=== PATIENT | female | born 1935 | race Caucasian/White ===

== ENCOUNTER 2016-10-12 11:20 | Emergency (ER) | payer MEDICARE, OTHER ==
[2016-10-12 12:05] VITALS: BP 157/71
--- NOTE | 2016-10-12 12:08 | EDM.PDOC ---
[id number] Time Seen by Provider: 10/12/16 11:45 Source: Reports: Patient, EMS, Family History Limitations: Reports: No limitations - History of Present Illness INITIAL COMMENTS - FREE TEXT/NARRATIVE: 81-year-old female brought in by EMS after a near syncopal episode at home. She was recently started on a new blood pressure medication, there have been a variety of medications tried to control her blood pressure. She had no palpitations but felt lightheaded, then became pale and diaphoretic and felt she was going to faint. By the time EMS arrived she was fine. No pain, no shortness of breath, no significant nausea or vomiting. Severity: mild Associated symptoms: Reports: diaphoresis, other (pallor which has resolved) - Related Data Allergies/ADRs: Allergies Allergy/AdvReac Type Severity Reaction Status Date / Time contrast dye Allergy Edema Uncoded 09/01/15 20:56 Home Meds: Home Meds Albuterol Sulfate [Proair Hfa] 2 puff INH QID PRN 09/01/15 [History] Budesonide/Formoterol [Symbicort 80-4.5 MCG] 2 puff INH BID 09/01/15 [History] Citalopram Hydrobromide [Citalopram HBr] 20 mg PO QAM 09/01/15 [History] Dicyclomine [Bentyl] 1 cap PO BIDAC PRN 09/01/15 [History] Furosemide [Lasix] 1 tab PO DAILY PRN 09/01/15 [History] Lisinopril [Lisinopril] 1 tab PO BID 09/01/15 [History] Chlorthalidone [Chlorthalidone] 10/12/16 [History] Past Medical History HEENT History: Reports: Cataract Cardiovascular History: Reports: Hypertension Respiratory History: Reports: Asthma Gastrointestinal History: Reports: Other (see below) Other Gastrointestinal History: abdominal pain after hysterectomy with constipation 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, Psychiatric History: Reports: Anxiety, Depression - Past Surgical History HEENT Surgical History: Reports: Cataract surgery, Tonsillectomy Cardiovascular Surgical History: Reports: None GI Surgical History: Reports: Colonoscopy Female Surgical History: Reports: Hysterectomy Social & Family History - Tobacco Use Smoking Status *Q: Never Smoker Years of Tobacco use: 25 Packs/Tins Daily: 1 Second Hand Smoke Exposure: Yes - Alcohol Use Days Per Week of Alcohol Use: 7 Number of Drinks Per Day: 1 Total Drinks Per Week: 7 - Recreational Drug Use Recreational Drug Use: No - Living Situation & Occupation Living situation: Reports: with significant other Occupation: employed (This is a 80-year-old female, 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 Denies: fever, chills HEENT: Reports: No symptoms Respiratory: Denies: Shortness of Breath Cardiovascular: Denies: Chest pain, Palpitations Endocrine: Denies: fatigue GI/Abdominal: Denies: Abdominal pain, Nausea : Reports: no symptoms Skin: Reports: pallor, diaphoresis Neurological: Reports: Dizziness Psychiatric: Reports: No symptoms ED EXAM, NEURO - Physical Exam Exam: See Below Exam Limited By: No limitations General Appearance: alert, no apparent distress Respiratory/Chest: no respiratory distress, lungs clear Cardiovascular: regular rate, rhythm. No: extra beats GI/Abdominal: soft, non tender Neurological: alert, normal mood/affect, no motor/sensory deficits Extremities: No: pedal edema Psychiatric: normal affect, normal mood Skin Exam: Warm, Dry Course - Vital Signs Last Recorded V/S: Last Vital Signs Temp 97.0 F 10/12/16 12:03 Pulse 55 L 10/12/16 12:03 Resp 14 10/12/16 12:03 BP 157/71 H 10/12/16 12:03 Pulse Ox 97 10/12/16 12:03 - Re-Assessments/Exams Free Text/Narrative Re-Assessment/Exam: 10/12/16 12:07 Cardiac monitoring shows a normal sinus rhythm, vitals are stable. Patient is seeing doctors on a frequent basis and no further workup is necessary at this time. If her symptoms continue to recur she may have to again evaluate her medications. 10/12/16 12:13 Patient is comfortable being discharged and will call her primary care to discuss her medications. She'll return if worsening or concerns. Departure - Departure Time of Disposition: 13:01 Disposition: Home, Self-Care 01 Condition: good Clinical Impression: Vasovagal near syncope Instructions: Vasovagal Syncope, Adult Referrals: Negro Anne MD [Primary Care Provider] - Forms: ED Department Discharge Care Plan Goals: Consider talking to your primary doctor regarding your blood pressure medications. Return anytime if worsening or concerns.
== END 2016-10-12 12:30 | disposition home or self-care (01) ==
LOC: JP.ED 11:20
DX: R55 Syncope and collapse (principal); I10 Essential (primary) hypertension; F41.9 Anxiety disorder, unspecified; F32.9 Major depressive disorder, single episode, unspecified; Z79.899 Other long term (current) drug therapy; Z91.041 Radiographic dye allergy status; Z98.49 Cataract extraction status, unspecified eye; Z90.710 Acquired absence of both cervix and uterus; Z98.890 Other specified postprocedural states
CPT/HCPCS: 99283; 99284

== ENCOUNTER 2017-02-19 11:29 | Inpatient (IN) | payer MEDICARE, OTHER ==
[2017-02-19] MEDS ORDERED: Aspirin 81 MG Tab.Chew PO ONE (12:09)
[2017-02-19] MEDS ORDERED: Potassium Chloride 20 MEQ in Premix Bag 1 BAG IV ONE (13:01)
--- NOTE | 2017-02-19 13:17 | CR ---
Mild cardiomegaly. Sternotomy. No focal consolidation. Pulmonary vasculature within normal limits.
--- NOTE | 2017-02-19 13:26 | CT ---
CT head without contrast. Indication: Confusion. Total DOP 678. Findings: No mass effect or midline shift. No hemorrhage. Left frontal cortically based calcificatio n similar compared to 12/09/2012. Hypodensities are in the periventricular white matter can indicate chronic small vessel ischemic disease. No hemorrhage no extra-axial fluid collection. Mastoid air ce lls are clear. Calvarium is similar compared to prior. Impression: 1. No acute intracranial process by CT
[2017-02-19] MEDS ORDERED: Potassium Chloride 20 MEQ, Lidocaine 1% 2 ML in Sodium Chloride 0.9% 100 ML IV ONE (13:45)
[2017-02-19] MEDS ORDERED: Sodium Chloride 0.9% 1,000 ML IV SCH (14:30)
--- NOTE | 2017-02-19 14:53 | EDM.PDOC ---
ED HPI GENERAL MEDICAL PROBLEM - General Chief Complaint: Chest Pain Stated Complaint: SOB/PAIN IN LT SHOULDER Time Seen by Provider: 02/19/17 11:50 Source of Information: Reports: Patient, Family History Limitations: Reports: Other (pt has been confused for the past week. She seemed worse today. ) - History of Present Illness INITIAL COMMENTS - FREE TEXT/NARRATIVE: pt arrived talking about left shoulder pain and left chest pain. She had told her that she felt like when she had her heart attack. She was very vague with any history. Onset: Today Duration: Hour(s): Location: Reports: Chest, Other (pt has had increased confusion) Associated Symptoms: Reports: Chest Pain, Other ( confusion) Middle Anterior Chest Pain Score (Numeric/FACES): 0 - Related Data Allergies Allergy/AdvReac Type Severity Reaction Status Date / Time Iodinated Contrast- Oral and Allergy Edema Verified 02/19/17 13:26 IV Dye Home Meds: Home Meds Albuterol Sulfate [Proair Hfa] 2 puff INH QID PRN 09/01/15 [History] Budesonide/Formoterol [Symbicort 80-4.5 MCG] 2 puff INH BID 09/01/15 [History] Citalopram Hydrobromide [Citalopram HBr] 20 mg PO QAM 09/01/15 [History] Dicyclomine [Bentyl] 1 cap PO BIDAC PRN 09/01/15 [History] Furosemide [Lasix] 1 tab PO DAILY PRN 09/01/15 [History] Lisinopril [Lisinopril] 1 tab PO BID 09/01/15 [History] Chlorthalidone [Chlorthalidone] 10/12/16 [History] Budesonide/Formoterol Fumarate [Symbicort 80-4.5 Mcg Inhaler] 2 puff INH BID 08/07 [History] Past Medical History HEENT History: Reports: Cataract Cardiovascular History: Reports: Hypertension Respiratory History: Reports: Asthma Gastrointestinal History: Reports: Other (See Below) Other Gastrointestinal History: abdominal pain after hysterectomy with constipation 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, Psychiatric History: Reports: Anxiety, Depression - Past Surgical History HEENT Surgical History: Reports: Cataract Surgery, Tonsillectomy Cardiovascular Surgical History: Reports: Coronary Artery Bypass Other Cardiovascular Surgeries/Procedures: 1 1/2 years ago GI Surgical History: Reports: Colonoscopy Female Surgical History: Reports: Hysterectomy Social & Family History - Tobacco Use Smoking Status *Q: Former Smoker Years of Tobacco use: 35 Packs/Tins Daily: 0.5 Used Tobacco, but Quit: No Second Hand Smoke Exposure: No - Caffeine Use Caffeine Use: Reports: Coffee - Alcohol Use Days Per Week of Alcohol Use: 7 Number of Drinks Per Day: 2 Total Drinks Per Week: 14 - Recreational Drug Use Recreational Drug Use: No - Living Situation & Occupation Living situation: Reports: with Significant Other Occupation: Employed ED ROS GENERAL - Review of Systems Review Of Systems: See Below Constitutional: Reports: No Symptoms HEENT: Reports: No Symptoms Respiratory: Reports: No Symptoms Cardiovascular: Reports: No Symptoms Endocrine: Reports: No Symptoms GI/Abdominal: Reports: No Symptoms : Reports: No Symptoms Musculoskeletal: Reports: No Symptoms Skin: Reports: No Symptoms Neurological: Reports: Confusion ED EXAM, GENERAL - Physical Exam Exam: See Below Free Text/Narrative:: pt has been progressively more confused in the last week. Today she told her that she felt like she was having a heart attack and was having shoulder and chest pain. She was unable to give any definite history regarding the heart problem. She has had a previous IN. Her grand children state that she has been confused for about 1 week. Exam Limited By: No Limitations General Appearance: Alert, Anxious, Mild Distress Ears: Normal TMs Nose: Normal Inspection Throat/Mouth: Normal Inspection Head: Atraumatic Neck: Normal Inspection Respiratory/Chest: No Respiratory Distress Cardiovascular: Regular Rate, Rhythm, Other (pt is having pain in the left shoulkder and the left chest. ) GI/Abdominal: Soft, Non-Tender Rectal (Female) Exam: Deferred Back Exam: Normal Inspection Extremities: Normal Inspection Neurological: Alert, Oriented, Normal Cognition Psychiatric: Other (pt is clearly confused. ) Course - Vital Signs Last Recorded V/S: Last Vital Signs Temp 36.5 C 02/19/17 11:47 Pulse 70 02/19/17 14:12 Resp 12 02/19/17 14:12 BP 168/76 H 02/19/17 14:12 Pulse Ox 96 02/19/17 14:12 - Orders/Labs/Meds Orders: Active Orders 24 hr Category Date Time Status EKG Documentation Completion [RC] ASDIRECTED Care 02/19/17 11:48 Active Potassium Chloride 20 meq Med 02/19/17 13:45 Active Lidocaine 1% [Xylocaine 1%] 2 ml Sodium Chloride 0.9% [Normal Saline] 100 ml IV ONETIME Sodium Chloride 0.9% [Normal Saline] 1,000 ml Med 02/19/17 14:30 Active IV ASDIRECTED EKG 12 Lead [EK] Routine Ther 02/19/17 11:48 Ordered Medication Orders Potassium Chloride 20 meq/Lidocaine HCl 2 ml/ Sodium Chloride 112 mls @ 56 mls/ hr IV ONETIME ONE Stop: 02/19/17 15:44 Last Admin: 02/19/17 13:56 Dose: 56 mls/hr Sodium Chloride (Normal Saline) 1,000 mls @ 100 mls/hr IV ASDIRECTED [facility] Labs: Laboratory Tests 02/19/17 02/19/17 02/19/17 Range/Units 11:54 11:54 11:54 WBC 7.3 (4.5-11.0) K/uL RBC 4.74 (3.30-5.50) M/uL Hgb 13.9 D (12.0-15.0) g/dL Hct 39.5 (36.0-48.0) % MCV 83 (80-98) fL MCH 29 (27-31) pg MCHC 35 (32-36) % Plt Count 229 (150-400) K/uL Neut % (Auto) 63 (36-66) % Lymph % (Auto) 23 L (24-44) % [place] % (Auto) 13 H (2-6) % Eos % (Auto) 2 (2-4) % Baso % (Auto) 0 (0-1) % Sodium 130 L (140-148) mmol/L Potassium 2.6 L* (3.6-5.2) mmol/L Chloride 89 L (100-108) mmol/L Carbon Dioxide 36 H (21-32) mmol/L Anion Gap 7.6 (5.0-14.0) mmol/L BUN 20 H (7-18) mg/dL Creatinine 1.1 H (0.6-1.0) mg/dL Est Cr Clr Drug Dosing 41.83 mL/min Estimated GFR (MDRD) 48 L (>60) Glucose 113 H (74-106) mg/dL Calcium 9.1 (8.5-10.1) mg/dL Total Bilirubin 1.0 (0.2-1.0) mg/dL AST 21 (15-37) U/L ALT 21 (12-78) U/L Alkaline Phosphatase 75 (46-116) U/L Creatine Kinase 77 (26-192) U/L Troponin I < 0.017 (0.000-0.056) ng/mL Total Protein 7.5 (6.4-8.2) g/dL Albumin 3.9 (3.4-5.0) g/dL Globulin 3.6 H (2.3-3.5) g/dL Albumin/Globulin Ratio 1.1 L (1.2-2.2) Urine Color Urine Appearance Urine pH (4.5-8.0) Ur Specific [place] (1.008-1.030) Urine Protein (NEGATIVE) mg/dL Urine Glucose (UA) (NEGATIVE) mg/dL Urine Ketones (NEGATIVE) mg/dL Urine Occult Blood (NEGATIVE) Urine Nitrite (NEGATIVE) Urine Bilirubin (NEGATIVE) Urine Urobilinogen (NORMAL) mg/dL Ur Leukocyte Esterase (NEGATIVE) Urine RBC (0-5) Urine WBC (0-5) Ur Epithelial Cells Amorphous Sediment Urine Bacteria Urine Mucus 02/19/17 Range/Units 12:18 WBC (4.5-11.0) K/uL RBC (3.30-5.50) M/uL Hgb (12.0-15.0) g/dL Hct (36.0-48.0) % MCV (80-98) fL MCH (27-31) pg MCHC (32-36) % Plt Count (150-400) K/uL Neut % (Auto) (36-66) % Lymph % (Auto) (24-44) % [place] % (Auto) (2-6) % Eos % (Auto) (2-4) % Baso % (Auto) (0-1) % Sodium (140-148) mmol/L Potassium (3.6-5.2) mmol/L Chloride (100-108) mmol/L Carbon Dioxide (21-32) mmol/L Anion Gap (5.0-14.0) mmol/L BUN (7-18) mg/dL Creatinine (0.6-1.0) mg/dL Est Cr Clr Drug Dosing mL/min Estimated GFR (MDRD) (>60) Glucose (74-106) mg/dL Calcium (8.5-10.1) mg/dL Total Bilirubin (0.2-1.0) mg/dL AST (15-37) U/L ALT (12-78) U/L Alkaline Phosphatase (46-116) U/L Creatine Kinase (26-192) U/L Troponin I (0.000-0.056) ng/mL Total Protein (6.4-8.2) g/dL Albumin (3.4-5.0) g/dL Globulin (2.3-3.5) g/dL Albumin/Globulin Ratio (1.2-2.2) Urine Color Yellow Urine Appearance Clear Urine pH 8.0 (4.5-8.0) Ur Specific [place] 1.015 (1.008-1.030) Urine Protein Negative (NEGATIVE) mg/dL Urine Glucose (UA) Normal (NEGATIVE) mg/dL Urine Ketones Negative (NEGATIVE) mg/dL Urine Occult Blood Negative (NEGATIVE) Urine Nitrite Negative (NEGATIVE) Urine Bilirubin Negative (NEGATIVE) Urine Urobilinogen Normal (NORMAL) mg/dL Ur Leukocyte Esterase Negative (NEGATIVE) Urine RBC Not seen (0-5) Urine WBC Not seen (0-5) Ur Epithelial Cells Not seen Amorphous Sediment Not seen Urine Bacteria Not seen Urine Mucus Not seen Meds: Medications Generic Name Dose Route Start Last Admin Trade Name Freq PRN Reason Stop Dose Admin Potassium Chloride 20 meq/ 112 mls @ 56 mls/hr 02/19/17 13:45 02/19/17 13:56 Lidocaine HCl 2 ml/ Sodium IV 02/19/17 15:44 56 mls/hr Chloride ONETIME ONE Administration Sodium Chloride 1,000 mls @ 100 mls/hr 02/19/17 14:30 Normal Saline IV ASDIRECTED SHAHRIAR Discontinued Medications Generic Name Dose Route Start Last Admin Trade Name Freq PRN Reason Stop Dose Admin Aspirin 324 mg 02/19/17 12:09 02/19/17 12:43 Aspirin PO 02/19/17 12:10 324 mg ONETIME ONE Administration - Re-Assessments/Exams Free Text/Narrative Re-Assessment/Exam: 02/19/17 14:55 pt had a neg head scan, her lab work was good except for the k being 2.6. Her cardiac enzymes are normal. Departure - Departure Time of Disposition: 14:56 Disposition: Admitted As Inpatient 68 Reason for Transfer *Q: Primary PCI Indicated Condition: Fair Clinical Impression: Atypical chest pain, Confusion, Hypokalemia Forms: ED Department Discharge Care Plan Goals: admit to Dr Torres - My Orders Last 24 Hours: My Active Orders 02/19/17 11:48 EKG Documentation Completion [RC] ASDIRECTED EKG 12 Lead [EK] Routine 02/19/17 13:45 Potassium Chloride 20 meq Lidocaine 1% [Xylocaine 1%] 2 ml Sodium Chloride 0.9 % [Normal Saline] 100 ml IV ONETIME 02/19/17 14:30 Sodium Chloride 0.9% [Normal Saline] 1,000 ml IV ASDIRECTED - Assessment/Plan Last 24 Hours: My Active Orders 02/19/17 11:48 EKG Documentation Completion [RC] ASDIRECTED EKG 12 Lead [EK] Routine 02/19/17 13:45 Potassium Chloride 20 meq Lidocaine 1% [Xylocaine 1%] 2 ml Sodium Chloride 0.9 % [Normal Saline] 100 ml IV ONETIME 02/19/17 14:30 Sodium Chloride 0.9% [Normal Saline] 1,000 ml IV ASDIRECTED
--- NOTE | 2017-02-19 15:48 | PCM.HP ---
H&P History of Present Illness - General Date of Service: 02/19/17 Admit Problem/Dx: Admission Diagnosis/Problem Admission Diagnosis/Problem Hypokalemia Source of Information: Patient, Family, Provider History Limitations: Reports: Altered Mental Status - History of Present Illness Initial Comments - Free Text/Narative: Rebeca presents to the emergency room today with her family with a chief complaint of chest pain. History is very difficult to gather as the patient is quite vague in doesn't really recall the recent events. History is gathered from her and additional family members. They report that over the past few days she's become increasingly confused. She's been misplacing objects such as car keys. She has not been acting like herself and is very forgetful. She has also seemed kind of anxious. They have not noticed any fevers or sweats. She does not report any abdominal pain, shortness of breath or diarrhea. She does not currently have any chest pain and doesn't really recall her episode this morning. 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 Pravastatin was one of the medications. She does not recall if she's used her dicyclomine recently. She reports that she just feels off but cannot be more specific. Workup in the emergency room revealed significant hypokalemia and a mildly decreased renal function from baseline. There is no obvious source of infection but the patient is obviously confused and not safe for outpatient management. Middle Anterior Chest Pain Score (Numeric/FACES): 0 - Related Data Allergies/Adverse Reactions: Allergies Allergy/AdvReac Type Severity Reaction Status Date / Time Iodinated Contrast- Oral and Allergy Edema Verified 02/19/17 13:26 IV Dye Home Medications: Home Meds Albuterol Sulfate [Proair Hfa] 2 puff INH QID PRN 09/01/15 [History] Citalopram Hydrobromide [Citalopram HBr] 20 mg PO QAM 09/01/15 [History] Dicyclomine [Bentyl] 1 cap PO BIDAC PRN 09/01/15 [History] Furosemide [Lasix] 1 tab PO DAILY PRN 09/01/15 [History] Chlorthalidone [Chlorthalidone] 25 mg PO DAILY 10/12/16 [History] Budesonide/Formoterol Fumarate [Symbicort 80-4.5 Mcg Inhaler] 2 puff INH BID 08/07 [History] Isosorbide Mononitrate [Isosorbide Mononitrate ER] 30 mg PO DAILY 02/19/17 [ History] Metoprolol Succinate 100 mg PO DAILY 02/19/17 [History] Pravastatin Sodium [Pravachol] 40 mg PO BEDTIME 02/19/17 [History] Simvastatin [Zocor] 20 mg PO BEDTIME 02/19/17 [History] amLODIPine Besylate [Amlodipine Besylate] 5 mg PO DAILY 02/19/17 [History] hydrOXYzine Pamoate [Hydroxyzine Pamoate] 25 mg PO TID PRN 02/19/17 [History] oxyCODONE HCl [Oxycodone HCl] 5 mg PO ASDIRECTED PRN 02/19/17 [History] Past Medical History HEENT History: Reports: Cataract Cardiovascular History: Reports: Hypertension Respiratory History: Reports: Asthma Gastrointestinal History: Reports: Other (See Below) Other Gastrointestinal History: abdominal pain after hysterectomy with constipation [employer] COMM[employer]GER History: Reports: 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, Psychiatric History: Reports: Anxiety, Depression - Past Surgical History HEENT Surgical History: Reports: Cataract Surgery, Tonsillectomy Cardiovascular Surgical History: Reports: Coronary Artery Bypass Other Cardiovascular Surgeries/Procedures: 1 1/2 years ago GI Surgical History: Reports: Colonoscopy Female Surgical History: Reports: Hysterectomy Social & Family History - Family History Cardiac: Denies: CAD - Tobacco Use Smoking Status *Q: Former Smoker Years of Tobacco use: 35 Packs/Tins Daily: 0.5 Used Tobacco, but Quit: No Second Hand Smoke Exposure: No - Caffeine Use Caffeine Use: Reports: Coffee - Alcohol Use Days Per Week of Alcohol Use: 7 Number of Drinks Per Day: 2 Total Drinks Per Week: 14 - Recreational Drug Use Recreational Drug Use: No - Living Situation & Occupation Living situation: Reports: with Significant Other Occupation: Employed H&P Review of Systems - Review of Systems: Review Of Systems: See Below Free Text/Narrative: A complete 12 point review of systems was obtained. Pertinent positives and negatives are noted in the history of present illness. All other systems were reviewed and were negative except as noted. Exam - Exam Exam: See Below - Vital Signs Vital Signs: Last Vital Signs Temp 36.5 C 02/19/17 11:47 Pulse 70 02/19/17 14:12 Resp 12 02/19/17 14:12 BP 168/76 H 02/19/17 14:12 Pulse Ox 96 02/19/17 14:12 Weight: 75.6 kg - Exam Quality Assessment: No: Supplemental Oxygen General: Alert, Cooperative. No: Oriented, Mild Distress HEENT: Conjunctiva Clear, Mucosa Moist & [place], Pupils Equal. No: Scleral Icterus Neck: Supple, Trachea Midline. No: Lymphadenopathy, Thyromegaly Lungs: Clear to Auscultation, Normal Respiratory Effort Cardiovascular: Regular Rate, Regular Rhythm. No: Systolic Murmur GI/Abdominal Exam: Normal Bowel Sounds, Soft, Non-Tender, No Distention Back Exam: Normal Inspection, Full Range of Motion. No: Vertebral Tenderness Extremities: Normal Inspection, Normal Range of Motion, No Pedal Edema Peripheral Pulses: 2+: Dorsalis Pedis (L), Dorsalis Pedis (R) Skin: Warm, Dry, Intact Neuro Extensive - Mental Status: Alert, Disorientation to Place, Disorientation to Time, Memory Loss-Recent Events, Slow Response to Commands. No: Oriented x3 , Normal Cognition Neuro Extensive - Motor, Sensory, Reflexes: CN II-XII Intact. No: Dysarthria, Abnormal Motor, Tremor DTR: 0: Bicep (L), Bicep (R), Patella (L), Patella (R) Psychiatric: Alert, Anxious (mild) - Patient Data Lab Results Last 24 hrs: Laboratory Results - last 24 hr 02/19/17 02/19/17 02/19/17 Range/Units 11:54 11:54 11:54 WBC 7.3 (4.5-11.0) K/uL RBC 4.74 (3.30-5.50) M/uL Hgb 13.9 D (12.0-15.0) g/dL Hct 39.5 (36.0-48.0) % MCV 83 (80-98) fL MCH 29 (27-31) pg MCHC 35 (32-36) % Plt Count 229 (150-400) K/uL Neut % (Auto) 63 (36-66) % Lymph % (Auto) 23 L (24-44) % [place] % (Auto) 13 H (2-6) % Eos % (Auto) 2 (2-4) % Baso % (Auto) 0 (0-1) % Sodium 130 L (140-148) mmol/L Potassium 2.6 L* (3.6-5.2) mmol/L Chloride 89 L (100-108) mmol/L Carbon Dioxide 36 H (21-32) mmol/L Anion Gap 7.6 (5.0-14.0) mmol/L BUN 20 H (7-18) mg/dL Creatinine 1.1 H (0.6-1.0) mg/dL Est Cr Clr Drug Dosing 41.83 mL/min Estimated GFR (MDRD) 48 L (>60) Glucose 113 H (74-106) mg/dL Calcium 9.1 (8.5-10.1) mg/dL Total Bilirubin 1.0 (0.2-1.0) mg/dL AST 21 (15-37) U/L ALT 21 (12-78) U/L Alkaline Phosphatase 75 (46-116) U/L Creatine Kinase 77 (26-192) U/L Troponin I < 0.017 (0.000-0.056) ng/mL Total Protein 7.5 (6.4-8.2) g/dL Albumin 3.9 (3.4-5.0) g/dL Globulin 3.6 H (2.3-3.5) g/dL Albumin/Globulin Ratio 1.1 L (1.2-2.2) Urine Color Urine Appearance Urine pH (4.5-8.0) Ur Specific [place] (1.008-1.030) Urine Protein (NEGATIVE) mg/dL Urine Glucose (UA) (NEGATIVE) mg/dL Urine Ketones (NEGATIVE) mg/dL Urine Occult Blood (NEGATIVE) Urine Nitrite (NEGATIVE) Urine Bilirubin (NEGATIVE) Urine Urobilinogen (NORMAL) mg/dL Ur Leukocyte Esterase (NEGATIVE) Urine RBC (0-5) Urine WBC (0-5) Ur Epithelial Cells Amorphous Sediment Urine Bacteria Urine Mucus 02/19/17 Range/Units 12:18 WBC (4.5-11.0) K/uL RBC (3.30-5.50) M/uL Hgb (12.0-15.0) g/dL Hct (36.0-48.0) % MCV (80-98) fL MCH (27-31) pg MCHC (32-36) % Plt Count (150-400) K/uL Neut % (Auto) (36-66) % Lymph % (Auto) (24-44) % [place] % (Auto) (2-6) % Eos % (Auto) (2-4) % Baso % (Auto) (0-1) % Sodium (140-148) mmol/L Potassium (3.6-5.2) mmol/L Chloride (100-108) mmol/L Carbon Dioxide (21-32) mmol/L Anion Gap (5.0-14.0) mmol/L BUN (7-18) mg/dL Creatinine (0.6-1.0) mg/dL Est Cr Clr Drug Dosing mL/min Estimated GFR (MDRD) (>60) Glucose (74-106) mg/dL Calcium (8.5-10.1) mg/dL Total Bilirubin (0.2-1.0) mg/dL AST (15-37) U/L ALT (12-78) U/L Alkaline Phosphatase (46-116) U/L Creatine Kinase (26-192) U/L Troponin I (0.000-0.056) ng/mL Total Protein (6.4-8.2) g/dL Albumin (3.4-5.0) g/dL Globulin (2.3-3.5) g/dL Albumin/Globulin Ratio (1.2-2.2) Urine Color Yellow Urine Appearance Clear Urine pH 8.0 (4.5-8.0) Ur Specific [place] 1.015 (1.008-1.030) Urine Protein Negative (NEGATIVE) mg/dL Urine Glucose (UA) Normal (NEGATIVE) mg/dL Urine Ketones Negative (NEGATIVE) mg/dL Urine Occult Blood Negative (NEGATIVE) Urine Nitrite Negative (NEGATIVE) Urine Bilirubin Negative (NEGATIVE) Urine Urobilinogen Normal (NORMAL) mg/dL Ur Leukocyte Esterase Negative (NEGATIVE) Urine RBC Not seen (0-5) Urine WBC Not seen (0-5) Ur Epithelial Cells Not seen Amorphous Sediment Not seen Urine Bacteria Not seen Urine Mucus Not seen Result Diagrams: 02/19/17 11:54 02/19/17 11:54 Imaging Impressions Last 24 hrs: head CT - images personally reviewed - possible mild chronic small vessel ischemic disease but no acute findings such as mass or hemorrhage Chest x-ray - images personally reviewed - chest is clear with no mass, infiltrate or effusion *Q Meaningful Use (ADM) - VTE *Q VTE Criteria *Q: - VTE Risk Assess *Q Each Risk Factor Represents 1 Point: None Total Score 1 Point Risk Factors: 0 Each Risk Factor Represents 2 Points: None Total Score 2 Point Risk Factors: 0 Each Risk Factor Represents 3 Points: Age 75 Years or Greater Total Score 3 Point Risk Factors: 3 Each Risk Factor Represents 5 Points: None Total Score 5 Point Risk Factors: 0 Venous Thromboembolism Risk Factor Score *Q: 3 - Stroke *Q Stroke Criteria *Q: - AMI *Q AMI Criteria *Q: - Problem List (1) Acute confusional state SNOMED Code(s): 9805836 ICD Code: F05 - DELIRIUM DUE TO KNOWN PHYSIOLOGICAL CONDITION Status: Acute Current Visit: Yes (2) Hypokalemia SNOMED Code(s): 63062395 ICD Code: E87.6 - HYPOKALEMIA Status: Acute Current Visit: Yes (3) Essential hypertension SNOMED Code(s): 20939184 ICD Code: I10 - ESSENTIAL (PRIMARY) HYPERTENSION Status: Chronic Current Visit: Yes (4) Atypical chest pain SNOMED Code(s): 226217890 ICD Code: R07.89 - OTHER CHEST PAIN Status: Acute Current Visit: Yes Problem List Initiated/Reviewed/Updated: Yes Orders Last 24hrs: Active Orders 24 hr Category Date Time Status Patient Status Manage Transfer [TRANSFER] Routine ADT 02/19/17 15:39 Ordered EKG Documentation Completion [RC] ASDIRECTED Care 02/19/17 11:48 Active SEDIMENTATION RATE MANUAL [HEME] Stat Lab 02/19/17 11:54 Received TSH ULTRASENSITIVE [CHEM] Stat Lab 02/19/17 11:54 Received Sodium Chloride 0.9% [Normal Saline] 1,000 ml Med 02/19/17 14:30 Active IV ASDIRECTED Resuscitation Status Routine Resus Stat 02/19/17 15:40 Ordered EKG 12 Lead [EK] Routine Ther 02/19/17 11:48 Ordered Medication Orders Sodium Chloride (Normal Saline) 1,000 mls @ 100 mls/hr IV ASDIRECTED SHAHRIAR Last Admin: 02/19/17 15:23 Dose: 100 mls/hr Assessment/Plan Comment:: Assessment and plan - Acute confusional state - at this time I'm suspicious medications are contributing to the difficulty with potential culprits including the dicyclomine in the pravastatin. I cannot find any evidence for infection at this time. I do not believe that hypokalemia should cause this level of confusion. There is no evidence for alcohol withdrawal or other illicit substance use. -Hold statin and dicyclomine -Gentle IV fluids -MRI in the morning to rule out occult stroke -TSH and B-12 levels Essential hypertension - difficult to control by history and patient has been on multiple medications. Blood pressure control is acceptable but suboptimal at this time. -Review home meds in the morning and restart as indicated Hypokalemia - significant hypokalemia, probably related to diuretic and chlorthalidone use. She has received a small quantity of supplementation in the emergency room and will receive additional oral and IV supplementation this afternoon and evening. -40 mEq by mouth 1 -IV fluids with potassium -Recheck level in the morning Maintenance issues - - DVT prophylaxis - mechanical - GI prophylaxis - not indicated - Nutrition - regular diet - Lowery catheter - not indicated CODE STATUS - full code Admission justification - This patient will be admitted for inpatient services and is medically appropriate meeting medical necessity for inpatient admission as outlined in my documentation. I reasonably expect the patient will require inpatient services that span a period time over 2 midnights. I reasonably expect this patient to be discharged or transferred within 96 hours [facility]. Disposition - anticipate discharge home after the hospital stay Primary care physician - Dr Dayana Torres M.D.
[2017-02-19] MEDS ORDERED: Polyethylene Glycol 3350 Powder 17 GM Packet PO PRN (16:13)
[2017-02-19] MEDS ORDERED: Ondansetron 4 MG Tab.DIS PO PRN (16:13)
[2017-02-19] MEDS ORDERED: Acetaminophen 325 MG Tab PO PRN (16:13)
[2017-02-19] MEDS ORDERED: Potassium Chloride 20 MEQ Tab.ER PO ONE (16:30)
[2017-02-19] MEDS: NS + KCl 20mEq/L 1,000 ML IV SCH (16:54)
[2017-02-19] MEDS: Potassium Chloride 20 MEQ in Premix Bag 1 BAG IV SCH ×2 (19:52→23:53)
[2017-02-19] MEDS: LORazepam 2 MG/ML MDV IVPUSH PRN (22:08)
[2017-02-19] MEDS: Thiamine 100 MG Tab PO SCH (22:47)
[2017-02-20] MEDS: NS + KCl 20mEq/L 1,000 ML IV SCH (01:40)
[2017-02-20] MEDS: LORazepam 2 MG/ML MDV IVPUSH PRN (10:04)
--- NOTE | 2017-02-20 10:15 | PCM.PN ---
- General Info Date of Service: 02/20/17 - Review of Systems General: Denies: Fever Neurological: Reports: Confusion Systems Review Comment:: No acute events overnight the patient had some difficulty with anxiety as well as what appeared to be some paranoia. She did not want to take potassium supplementation because she heard that this medication was hard on the body. Vital signs have been relatively stable other than moderate hypertension. No complaints of headache. Muscle aches have improved. No reports of chest pain. She seems more clear and interactive today. She has not had any fevers. - Patient Data Vitals - Most Recent: Last Vital Signs Temp 37.2 C 02/20/17 08:00 Pulse 70 02/20/17 08:00 Resp 17 02/20/17 08:00 BP 140/56 L 02/20/17 08:00 Pulse Ox 96 02/20/17 08:00 Weight - Most Recent: 75.6 kg I&O - Last 24 Hours: Intake & Output 02/19/17 02/20/17 02/20/17 22:59 06:59 14:59 Intake Total 220 1846 Output Total 650 275 300 Balance -430 1571 -300 Lab Results Last 24 Hours: Laboratory Results - last 24 hr 02/19/17 02/20/17 02/20/17 Range/Units 16:13 05:50 06:20 WBC 6.7 (4.5-11.0) K/uL RBC 4.40 (3.30-5.50) M/uL Hgb 12.8 (12.0-15.0) g/dL Hct 37.3 (36.0-48.0) % MCV 85 (80-98) fL MCH 29 (27-31) pg MCHC 34 (32-36) % Plt Count 211 (150-400) K/uL Sodium 135 L (140-148) mmol/L Potassium 3.1 L (3.6-5.2) mmol/L Chloride 97 L (100-108) mmol/L Carbon Dioxide 31 (21-32) mmol/L Anion Gap 10.1 (5.0-14.0) mmol/L BUN 16 (7-18) mg/dL Creatinine 1.0 (0.6-1.0) mg/dL Est Cr Clr Drug Dosing 46.20 mL/min Estimated GFR (MDRD) 53 L (>60) Glucose 96 (74-106) mg/dL Calcium 8.4 L (8.5-10.1) mg/dL Magnesium 1.8 (1.8-2.4) mg/dL Vitamin B12 674 (193-986) pg/ml Med Orders - Current: Current Medications Acetaminophen (Tylenol) 650 mg PO Q4H PRN PRN Reason: Pain (Mild 1-3)/fever Lorazepam (Ativan) 0.5 mg IVPUSH Q4H PRN PRN Reason: Anxiety Last Admin: 02/20/17 10:04 Dose: 0.5 mg Ondansetron HCl (Zofran Odt) 4 mg PO Q6H PRN PRN Reason: Nausea able to take PO Polyethylene Glycol (Miralax) 17 gm PO DAILY PRN PRN Reason: Constipation Thiamine HCl (Vitamin B-1) 100 mg PO BEDTIME [facility] Last Admin: 02/19/17 22:47 Dose: 100 mg Discontinued Medications Aspirin (Aspirin) 324 mg PO ONETIME ONE Stop: 02/19/17 12:10 Last Admin: 02/19/17 12:43 Dose: 324 mg Potassium Chloride 20 meq/Lidocaine HCl 2 ml/ Sodium Chloride 112 mls @ 56 mls/ hr IV ONETIME ONE Stop: 02/19/17 15:44 Last Admin: 02/19/17 13:56 Dose: 56 mls/hr Sodium Chloride (Normal Saline) 1,000 mls @ 100 mls/hr IV ASDIRECTED [facility] Last Admin: 02/19/17 15:23 Dose: 100 mls/hr Potassium Chloride/Sodium Chloride (Normal Saline With 20 Meq Kcl) 1,000 mls @ 125 mls/hr IV ASDIRECTED [facility] Last Admin: 02/20/17 01:40 Dose: 125 mls/hr Potassium Chloride 20 meq/ (Premix) 100 mls @ 50 mls/hr IV Q2H [facility] Stop: 02/19/17 23:59 Last Admin: 02/19/17 23:53 Dose: 50 mls/hr Lidocaine HCl (Xylocaine-Mpf 1%) 2 ml INJECT Q2H [facility] Stop: 02/19/17 22:01 Last Admin: 02/19/17 23:55 Dose: 2 ml Potassium Chloride (Klor-Con M20) 40 meq PO ONETIME ONE Stop: 02/19/17 16:31 Last Admin: 02/19/17 19:35 Dose: Not Given - Exam Quality Assessment: No: Supplemental Oxygen General: Alert, Oriented, Cooperative, No Acute Distress Neck: Supple Lungs: Normal Respiratory Effort GI/Abdominal Exam: Soft, No Distention Extremities: No Pedal Edema Skin: Warm, Dry Neurological: No New Focal Deficit Psy/Mental Status: Alert, Normal Affect, Anxious - Problem List & Annotations (1) Acute confusional state SNOMED Code(s): 5208404 Code(s): F05 - DELIRIUM DUE TO KNOWN PHYSIOLOGICAL CONDITION Status: Acute Current Visit: Yes (2) Hypokalemia SNOMED Code(s): 67711895 Code(s): E87.6 - HYPOKALEMIA Status: Acute Current Visit: Yes (3) Essential hypertension SNOMED Code(s): 60242838 Code(s): I10 - ESSENTIAL (PRIMARY) HYPERTENSION Status: Chronic Current Visit: Yes (4) Atypical chest pain SNOMED Code(s): 859357069 Code(s): R07.89 - OTHER CHEST PAIN Status: Acute Current Visit: Yes - Problem List Review Problem List Initiated/Reviewed/Updated: Yes - My Orders Last 24 Hours: My Active Orders 02/19/17 15:40 Resuscitation Status Routine 02/19/17 16:13 Patient Status [ADT] Routine Intake and Output [RC] QSHIFT Notify Provider Vital Signs [RC] ASDIRECTED Oxygen Therapy [RC] PRN Up With Assistance [RC] ASDIRECTED VTE/DVT Education [RC] Per Unit Routine Vital Signs [RC] Q4H Acetaminophen [Tylenol] 650 mg PO Q4H PRN Ondansetron [Zofran ODT] 4 mg PO Q6H PRN Polyethylene Glycol 3350 [MiraLAX] 17 gm PO DAILY PRN Sequential Compression Device [OM.PC] Per Unit Routine 02/19/17 21:00 Thiamine [Vitamin B-1] 100 mg PO BEDTIME 02/19/17 21:11 LORazepam [Ativan] 0.5 mg IVPUSH Q4H PRN 02/19/17 Dinner Regular Diet [DIET] 02/20/17 07:00 Brain wo Cont [MR] Routine 02/20/17 10:11 LORazepam [Ativan] 0.5 mg IVPUSH ONETIME ONE 02/20/17 10:12 LORazepam [Ativan] 0.5 mg PO Q4H PRN 02/20/17 10:13 Potassium Chloride [Klor-Con M20] 40 meq PO ONETIME ONE Convert IV to Saline Lock [OM.PC] Routine 02/20/17 10:14 Discontinue Telemetry Monitoring [Cardiac Monitoring Discontinue] [RC] Click to Edit 02/21/17 05:11 BASIC METABOLIC PANEL,BMP [CHEM] AM CBC W/O DIFF,HEMOGRAM [HEME] AM - Plan Plan:: Assessment and plan - Acute confusional state - most likely this represents a toxic encephalopathy with possible contribution from statin medication and maybe from alcohol. She seems to be more clear today and seems to be even better when she has received lorazepam. MRI showed mild chronic small vessel ischemic disease no evidence for stroke mass or other abnormality. TSH mildly elevated and B-12 is normal. -Hold statin and dicyclomine -Saline lock IV -Supplement thiamine Essential hypertension - monitor blood pressure elevation overnight but seems to be better this morning after prior to admission home medications were started. -Continue chlorthalidone, losartan and carvedilol Hypokalemia - potassium level has been improving with supplementation but remains low. -40 mEq by mouth 1 -Recheck potassium this afternoon -Recheck level in the morning Maintenance issues - - DVT prophylaxis - mechanical - GI prophylaxis - not indicated - Nutrition - regular diet Disposition - anticipate discharge home after the hospital stay Primary care physician - Dr Dayana Torres M.D.
[2017-02-20] MEDS ORDERED: LORazepam 2 MG/ML MDV IVPUSH ONE (10:45)
[2017-02-20] MEDS ORDERED: Potassium Chloride 20 MEQ Tab.ER PO ONE (10:45)
[2017-02-20] MEDS: Losartan 50 MG Tab PO SCH (11:10)
[2017-02-20] MEDS: Chlorthalidone 25 MG Tab PO SCH (11:11)
[2017-02-20] MEDS: Citalopram 20 MG Tab PO SCH (11:13)
[2017-02-20] MEDS: Carvedilol 12.5 MG Tab PO SCH ×2 (11:14→17:41)
[2017-02-20] MEDS: Aspirin 81 MG Tab.EC PO SCH (11:15)
--- NOTE | 2017-02-20 11:44 | MR ---
MR brain Indication: Confusion comparison 12/24/2012 Findings: no restricted diffusion to indicate acute infarct. High T2 signal abnormality within the d eep and periventricular white matter has mildly increased compared to prior examination. Increased s ignal within the abhijit as well is again evident. Increasing fluid within the right mastoid air cells. No ventriculomegaly. No extra-axial fluid collection. No air-fluid levels within the sinuses. Hemos iderin deposition left frontal lobe indicating the prior described calcification on CT. Impression: 1. No acute infarct. 2. High T2 signal abnormality has increased surrounding the deep and periventricular white matter. F indings can indicate chronic small vessel ischemic disease. Correlate with a history for MS as well. 3. Fluid within the right mastoid air cells. Correlate for mastoiditis.
[2017-02-20] MEDS: LORazepam 0.5 MG Tab PO PRN ×2 (17:03→21:44)
[2017-02-20] MEDS: Thiamine 100 MG Tab PO SCH (21:41)
[2017-02-21] MEDS: LORazepam 0.5 MG Tab PO PRN (03:19)
[2017-02-21] MEDS: Losartan 50 MG Tab PO SCH (08:47)
[2017-02-21] MEDS: Citalopram 20 MG Tab PO SCH (08:48)
[2017-02-21] MEDS: Aspirin 81 MG Tab.EC PO SCH (08:48)
[2017-02-21] MEDS: Chlorthalidone 25 MG Tab PO SCH (08:48)
[2017-02-21] MEDS: Carvedilol 12.5 MG Tab PO SCH (08:57)
[2017-02-21 11:32] VITALS: BP 165/85
--- NOTE | 2017-02-21 12:49 | PCM.DCSUM1 ---
Discharge Summary - Hospital Course Brief History: 81-year-old female with history of difficult to control hypertension who presented with acute confusion and was admitted for further workup and management. - Discharge Data Discharge Date: 02/21/17 Discharge Disposition: Home, Self-Care 01 Condition: Good - Discharge Diagnosis/Problem(s) (1) Acute confusional state SNOMED Code(s): 0284173 ICD Code: F05 - DELIRIUM DUE TO KNOWN PHYSIOLOGICAL CONDITION Status: Acute Problem Details: 2/2 statin? (2) Hypokalemia SNOMED Code(s): 05445704 ICD Code: E87.6 - HYPOKALEMIA Status: Acute (3) Essential hypertension SNOMED Code(s): 21392014 ICD Code: I10 - ESSENTIAL (PRIMARY) HYPERTENSION Status: Chronic (4) Atypical chest pain SNOMED Code(s): 848505755 ICD Code: R07.89 - OTHER CHEST PAIN Status: Acute - Patient Summary/Data Hospital Course: Rebeca presented to the emergency room with acute on subacute confusion. Workup in the emergency room was relatively unremarkable. There was concern for a toxic encephalopathy and she was admitted to the hospital for management. Culprit medication was thought to be the statin medication which had been relatively recently restarted. There is no strong evidence for infection. Initially there was suboptimal blood pressure control and her home medication list was difficult to determine at the time of admission. Fortunately we have been able to sort out her medication list and blood pressure has been well- controlled with medications we have used during the hospital stay. Her confusion has improved significantly during the course of the hospital stay just by holding her statin medication and providing gentle IV fluids. There does appear to be some contribution from anxiety as the patient seems to become less responsive when she gets anxious. She responds very well to lorazepam. We did perform an MRI of her brain the day after admission which showed chronic small vessel ischemic disease but no acute findings. On the day of discharge she seems to be doing well and her family agrees that she has improved significantly. I have encouraged her to discontinue her statin medication indefinitely. Her blood pressure has been well controlled. We did discuss limiting her alcohol consumption to 1 ounce daily. She will be discharged home with her family and will have follow-up with primary care in 1-2 weeks to ensure that she continues to do well. She did have some difficulties with hypokalemia at the time of presentation but these have responded well to supplementation and have remained stable. - Patient Instructions Diet: Regular Diet as Tolerated Activity: As Tolerated Showering/Bathing: May Shower Notify Provider of: Fever, Increased Pain, Nausea and/or Vomiting Other/Special Instructions: 1. You were in the hospital for management of hypokalemia as well as an acute confusional state. Your potassium level has improved with supplementation. Your confusion seems to be improving significantly and I suspect this was related to a side effect of the statin medication. I would recommend that to completely discontinue taking the statin medication. 2. We will be providing a list of blood pressure medications that I recommend you take at home. This list includes chlorthalidone, losartan and carvedilol. You have a new prescription from the [facility] for spironolactone. I recommend that you use this medication as needed if your blood pressure remains elevated at greater than 150 mmHg on several consecutive checks over a couple hours. 3. I have provided a prescription for lorazepam which you should use sparingly but as needed for breakthrough severe anxiety. 4. You may resume taking your prior to admission supplements as well as inhalers. I would recommend that you find a quality B complex multivitamin that you can take once daily to help supplement your diet. 5. Continue to change the dressing on your left leg once daily as recommended by Dr. Dawson. It is okay to shower but I would recommend avoiding bathing in a tub. 6. Please seek medical attention if you develop fever greater than 101, have worsening of your confusion or you develop acute chest pain or shortness of breath. - Discharge Plan Prescriptions/Med Rec: LORazepam [Ativan] 0.5 mg PO TID PRN #30 tablet PRN Reason: Anxiety Home Medications: Home Meds Albuterol Sulfate [Proair Hfa] 2 puff INH QID PRN 09/01/15 [History] Citalopram Hydrobromide [Citalopram HBr] 20 mg PO QAM 09/01/15 [History] Dicyclomine [Bentyl] 1 cap PO BIDAC PRN 09/01/15 [History] Chlorthalidone 25 mg PO DAILY 10/12/16 [History] Budesonide/Formoterol Fumarate [Symbicort 80-4.5 Mcg Inhaler] 2 puff INH BID 08/07 [History] Aspirin [Halfprin] 81 mg PO DAILY 02/20/17 [History] Carvedilol 12.5 mg PO BIDAC 02/20/17 [History] Losartan [Cozaar] 100 mg PO DAILY 02/20/17 [History] LORazepam [Ativan] 0.5 mg PO TID PRN #30 tablet 02/21/17 [Rx] Patient Handouts: Hypokalemia Referrals: Negro Anne MD [Primary Care Provider] - (f/u in 1-2 - follow-up hospital stay for confusion thought secondary to statin) - Discharge Summary/Plan Comment DC Time >30 min.: No (25) - Patient Data Vitals - Most Recent: Last Vital Signs Temp 36.6 C 02/21/17 11:31 Pulse 61 02/21/17 11:31 Resp 16 02/21/17 11:31 BP 165/85 H 02/21/17 11:31 Pulse Ox 94 L 02/21/17 11:31 Weight - Most Recent: 75.6 kg I&O - Last 24 hours: Intake & Output 02/20/17 02/21/17 02/21/17 22:59 06:59 14:59 Intake Total 1250 900 Output Total 550 400 400 Balance 700 500 -400 Lab Results - Last 24 hrs: Laboratory Results - last 24 hr 02/20/17 02/21/17 02/21/17 Range/Units 17:00 05:15 05:15 WBC 7.2 (4.5-11.0) K/uL RBC 4.54 (3.30-5.50) M/uL Hgb 13.3 (12.0-15.0) g/dL Hct 39.2 (36.0-48.0) % MCV 86 (80-98) fL MCH 29 (27-31) pg MCHC 34 (32-36) % Plt Count 200 (150-400) K/uL Sodium 136 L (140-148) mmol/L Potassium 4.4 4.1 (3.6-5.2) mmol/L Chloride 100 (100-108) mmol/L Carbon Dioxide 31 (21-32) mmol/L Anion Gap 9.1 (5.0-14.0) mmol/L BUN 15 (7-18) mg/dL Creatinine 0.9 (0.6-1.0) mg/dL Est Cr Clr Drug Dosing 51.33 mL/min Estimated GFR (MDRD) > 60 (>60) Glucose 113 H (74-106) mg/dL Calcium 8.7 (8.5-10.1) mg/dL Med Orders - Current: Current Medications Acetaminophen (Tylenol) 650 mg PO Q4H PRN PRN Reason: Pain (Mild 1-3)/fever Aspirin (Halfprin) 81 mg PO DAILY [facility] Last Admin: 02/21/17 08:48 Dose: 81 mg Carvedilol (Coreg) 12.5 mg PO BIDMEALS [facility] Last Admin: 02/21/17 08:57 Dose: 12.5 mg Chlorthalidone (Chlorthalidone) 25 mg PO DAILY [facility] Last Admin: 02/21/17 08:48 Dose: 25 mg Citalopram Hydrobromide (Celexa) 20 mg PO QAM [facility] Last Admin: 02/21/17 08:48 Dose: 20 mg Lorazepam (Ativan) 0.5 mg IVPUSH Q4H PRN PRN Reason: Anxiety Last Admin: 02/20/17 10:04 Dose: 0.5 mg Lorazepam (Ativan) 0.5 mg PO Q4H PRN PRN Reason: Anxiety Last Admin: 02/21/17 03:19 Dose: 0.5 mg Losartan Potassium (Cozaar) 100 mg PO DAILY [facility] Last Admin: 02/21/17 08:47 Dose: 100 mg Ondansetron HCl (Zofran Odt) 4 mg PO Q6H PRN PRN Reason: Nausea able to take PO Polyethylene Glycol (Miralax) 17 gm PO DAILY PRN PRN Reason: Constipation Thiamine HCl (Vitamin B-1) 100 mg PO BEDTIME [facility] Last Admin: 02/20/17 21:41 Dose: 100 mg Discontinued Medications Aspirin (Aspirin) 324 mg PO ONETIME ONE Stop: 02/19/17 12:10 Last Admin: 02/19/17 12:43 Dose: 324 mg Potassium Chloride 20 meq/Lidocaine HCl 2 ml/ Sodium Chloride 112 mls @ 56 mls/ hr IV ONETIME ONE Stop: 02/19/17 15:44 Last Admin: 02/19/17 13:56 Dose: 56 mls/hr Sodium Chloride (Normal Saline) 1,000 mls @ 100 mls/hr IV ASDIRECTED SHAHRIAR Last Admin: 02/19/17 15:23 Dose: 100 mls/hr Potassium Chloride/Sodium Chloride (Normal Saline With 20 Meq Kcl) 1,000 mls @ 125 mls/hr IV ASDIRECTED SHAHRIAR Last Admin: 02/20/17 01:40 Dose: 125 mls/hr Potassium Chloride 20 meq/ (Premix) 100 mls @ 50 mls/hr IV Q2H SHAHRIAR Stop: 02/19/17 23:59 Last Admin: 02/19/17 23:53 Dose: 50 mls/hr Lidocaine HCl (Xylocaine-Mpf 1%) 2 ml INJECT Q2H SHAHRIAR Stop: 02/19/17 22:01 Last Admin: 02/19/17 23:55 Dose: 2 ml Lorazepam (Ativan) 0.5 mg IVPUSH ONETIME ONE Stop: 02/20/17 10:46 Last Admin: 02/20/17 13:15 Dose: Not Given Potassium Chloride (Klor-Con M20) 40 meq PO ONETIME ONE Stop: 02/19/17 16:31 Last Admin: 02/19/17 19:35 Dose: Not Given Potassium Chloride (Klor-Con M20) 40 meq PO ONETIME ONE Stop: 02/20/17 10:46 Last Admin: 02/20/17 11:24 Dose: 40 meq *Q Meaningful Use (DIS) - VTE *Q VTE Criteria *Q: - Stroke *Q Stroke Criteria *Q: - AMI *Q AMI Criteria *Q:
== END 2017-02-21 13:45 | disposition home or self-care (01) | DRG 93 ==
LOC: JP.ED 11:29 → UNDOADMIN 15:39 → JP.ICU 15:39 → JP.MS 02-20 16:30 → JP.ICU 02-20 16:30 → UNDODISIN 02-21 13:45
PROVIDERS: ADMIT Internal Medicine; ATTEND Internal Medicine
DX: G47.51 Confusional arousals (principal); G92 Toxic encephalopathy; T46.6X5A Adverse effect of antihyperlipidemic and antiarteriosclerotic drugs, initial encounter; Y92.009 Unspecified place in unspecified non-institutional (private) residence as the place of occurrence of the external cause; R07.89 Other chest pain; R07.9 Chest pain, unspecified; R06.02 Shortness of breath; I10 Essential (primary) hypertension; Z87.891 Personal history of nicotine dependence; E87.6 Hypokalemia; I25.2 Old myocardial infarction; F41.9 Anxiety disorder, unspecified; Z95.1 Presence of aortocoronary bypass graft; J45.909 Unspecified asthma, uncomplicated; Z91.041 Radiographic dye allergy status
CPT/HCPCS: 36415; 70450 ×2; 71010 ×2; 80053; 81001; 82550; 84443; 84484; 85025; 85651; 93005; 96360; 96361; 99285; A9270; J3480; J7030; J7040; 70551; 70551-26; 80048; 82607; 83735; 84132; 85027; 86618; 93010; J2060

== ENCOUNTER 2017-02-24 21:53 | Emergency (ER) | payer MEDICARE, OTHER ==
[2017-02-24 22:47] VITALS: BP 167/85
[2017-02-24] MEDS ORDERED: Lactated Ringers 1,000 ML IV ONE (23:28)
[2017-02-24] MEDS ORDERED: Sodium Chloride 0.9% 10 ML Syringe FLUSH PRN (23:28)
--- NOTE | 2017-02-24 23:28 | EDM.PDOC ---
ED HPI GENERAL MEDICAL PROBLEM - General Chief Complaint: Behavioral/Psych Stated Complaint: confused Time Seen by Provider: 02/24/17 22:32 Source of Information: Reports: Patient, Family, Old Records, RN Notes Reviewed History Limitations: Reports: Physical Impairment - History of Present Illness INITIAL COMMENTS - FREE TEXT/NARRATIVE: 81-year-old female presents emergency department today for ongoing confusion, she was recently admitted to hospital for an extensive workup discharged on February 21 3 days prior MRI at that time showed no acute process but small vessel ischemic disease. She has progressively gotten worse over the last couple weeks but family does admit over the last couple years they've noticed subtle changes which has really accumulated to her current state she has difficulty with concentration difficulty with memory will become easily agitated forgetful easily getting lost. - Related Data Allergies Allergy/AdvReac Type Severity Reaction Status Date / Time acetaminophen [From Tylenol] Allergy Vomiting Verified 02/24/17 22:28 Iodinated Contrast- Oral and Allergy Edema Verified 02/24/17 22:28 IV Dye Home Meds: Home Meds Albuterol Sulfate [Proair Hfa] 2 puff INH QID PRN 09/01/15 [History] Citalopram Hydrobromide [Citalopram HBr] 20 mg PO QAM 09/01/15 [History] Dicyclomine [Bentyl] 1 cap PO BIDAC PRN 09/01/15 [History] Chlorthalidone 25 mg PO DAILY 10/12/16 [History] Budesonide/Formoterol Fumarate [Symbicort 80-4.5 Mcg Inhaler] 2 puff INH BID 08/07 [History] Aspirin [Halfprin] 81 mg PO DAILY 02/20/17 [History] Carvedilol 12.5 mg PO BIDAC 02/20/17 [History] Losartan [Cozaar] 100 mg PO DAILY 02/20/17 [History] LORazepam [Ativan] 0.5 mg PO TID PRN #30 tablet 02/21/17 [Rx] Past Medical History HEENT History: Reports: Cataract Cardiovascular History: Reports: Hypertension Respiratory History: Reports: Asthma Gastrointestinal History: Reports: Other (See Below) Other Gastrointestinal History: abdominal pain after hysterectomy with constipation 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, Neurological History: Reports: Other (See Below) (Small vessel ischemic disease) Psychiatric History: Reports: Anxiety, Depression - Past Surgical History HEENT Surgical History: Reports: Cataract Surgery, Tonsillectomy Cardiovascular Surgical History: Reports: Coronary Artery Bypass Other Cardiovascular Surgeries/Procedures: 1 1/2 years ago GI Surgical History: Reports: Colonoscopy Female Surgical History: Reports: Hysterectomy Social & Family History - Tobacco Use Smoking Status *Q: Never Smoker Years of Tobacco use: 35 Packs/Tins Daily: 0.5 Used Tobacco, but Quit: No Second Hand Smoke Exposure: No - Caffeine Use Caffeine Use: Reports: Coffee - Alcohol Use Days Per Week of Alcohol Use: 7 Number of Drinks Per Day: 2 Total Drinks Per Week: 14 - Recreational Drug Use Recreational Drug Use: No - Living Situation & Occupation Living situation: Reports: with Significant Other Occupation: Employed ED ROS GENERAL - Review of Systems Review Of Systems: See Below Constitutional: Reports: No Symptoms Respiratory: Reports: No Symptoms Cardiovascular: Reports: No Symptoms GI/Abdominal: Reports: No Symptoms : Reports: No Symptoms Neurological: Reports: Other (Memory difficulty) ED EXAM, GENERAL - Physical Exam Exam: See Below Exam Limited By: Physical Impairment General Appearance: Alert, No Apparent Distress Respiratory/Chest: No Respiratory Distress, Lungs Clear, Normal Breath Sounds, No Accessory Muscle Use Cardiovascular: Regular Rate, Rhythm, No Murmur Course - Vital Signs Last Recorded V/S: Last Vital Signs Temp 96.8 F 02/24/17 22:43 Pulse 75 02/24/17 22:43 Resp 14 02/24/17 22:43 BP 167/85 H 02/24/17 22:43 Pulse Ox 96 02/24/17 22:43 - Orders/Labs/Meds Orders: Active Orders 24 hr Category Date Time Status Peripheral IV Care [RC] . DIRECTED Care 02/24/17 23:29 Active CBC WITH AUTO DIFF [HEME] Stat Lab 02/24/17 23:23 Ordered COMPREHENSIVE METABOLIC PN,CMP [CHEM] Stat Lab 02/24/17 23:23 Ordered Lactated Ringers [Ringers, Lactated] 1,000 ml Med 02/24/17 23:28 Active IV BOLUS Sodium Chloride 0.9% [Saline Flush] Med 02/24/17 23:28 Active 10 ml FLUSH ASDIRECTED PRN Peripheral IV Insertion Adult [OM.PC] Urgent Oth 02/24/17 23:28 Ordered Medication Orders Lactated Ringer's (Ringers, Lactated) 1,000 mls @ 500 mls/hr IV BOLUS ONE Stop: 02/25/17 01:27 Sodium Chloride (Saline Flush) 10 ml FLUSH ASDIRECTED PRN PRN Reason: Keep Vein Open Labs: Laboratory Tests 02/24/17 Range/Units 23:40 Urine Color Yellow Urine Appearance Clear Urine pH 7.0 (4.5-8.0) Ur Specific [place] 1.015 (1.008-1.030) Urine Protein Negative (NEGATIVE) mg/dL Urine Glucose (UA) Normal (NEGATIVE) mg/dL Urine Ketones Negative (NEGATIVE) mg/dL Urine Occult Blood Negative (NEGATIVE) Urine Nitrite Negative (NEGATIVE) Urine Bilirubin Negative (NEGATIVE) Urine Urobilinogen Normal (NORMAL) mg/dL Ur Leukocyte Esterase Negative (NEGATIVE) Urine RBC 0-5 (0-5) Urine WBC 0-5 (0-5) Ur Epithelial Cells Few Amorphous Sediment Not seen Urine Bacteria Few Urine Mucus Not seen Meds: Medications Generic Name Dose Route Start Last Admin Trade Name Freq PRN Reason Stop Dose Admin Lactated Ringer's 1,000 mls @ 500 mls/hr 02/24/17 23:28 Ringers, Lactated IV 02/25/17 01:27 BOLUS ONE Sodium Chloride 10 ml 02/24/17 23:28 Saline Flush FLUSH ASDIRECTED PRN Keep Vein Open Departure - Departure Time of Disposition: 00:19 Disposition: Home, Self-Care 01 Condition: Poor Clinical Impression: Dementia Qualifiers: Dementia type: unspecified type - Discharge Information Forms: ED Department Discharge Additional Instructions: Use the Robitussin-AC as needed help suppress cough, please follow-up with primary care recommend neuropsych consult, call return emergency department with worsening of symptoms - My Orders Last 24 Hours: My Active Orders 02/24/17 23:23 CBC WITH AUTO DIFF [HEME] Stat COMPREHENSIVE METABOLIC PN,CMP [CHEM] Stat 02/24/17 23:28 Lactated Ringers [Ringers, Lactated] 1,000 ml IV BOLUS Sodium Chloride 0.9% [Saline Flush] 10 ml FLUSH ASDIRECTED PRN Peripheral IV Insertion Adult [OM.PC] Urgent 02/24/17 23:29 Peripheral IV Care [RC] . DIRECTED - Assessment/Plan Last 24 Hours: My Active Orders 02/24/17 23:23 CBC WITH AUTO DIFF [HEME] Stat COMPREHENSIVE METABOLIC PN,CMP [CHEM] Stat 02/24/17 23:28 Lactated Ringers [Ringers, Lactated] 1,000 ml IV BOLUS Sodium Chloride 0.9% [Saline Flush] 10 ml FLUSH ASDIRECTED PRN Peripheral IV Insertion Adult [OM.PC] Urgent 02/24/17 23:29 Peripheral IV Care [RC] . DIRECTED Plan: Assessment Acuity = acute Site and laterality = dementia complicated in a patient with history of chronic small vessel disease Etiology = unclear etiology Manifestations = ongoing memory issues Location of injury = Home Lab values = none Plan We did offer further blood work and evaluation they declined at this time there can follow-up with primary care recommend neuropsych consult she does have an ongoing cough they would like to try some Robitussin-AC to help sleep at night Patient was in agreement with the plan all questions were answered, they were instructed to return to the emergency department or call for worsening symptoms. This note was dictated using [employer] voice recognition software please call with any questions.
== END 2017-02-25 00:29 | disposition home or self-care (01) ==
LOC: JP.ED 21:53
DX: F03.90 Unspecified dementia, unspecified severity, without behavioral disturbance, psychotic disturbance, mood disturbance, and anxiety (principal); I10 Essential (primary) hypertension; J45.909 Unspecified asthma, uncomplicated; F41.9 Anxiety disorder, unspecified; F32.9 Major depressive disorder, single episode, unspecified; Z86.69 Personal history of other diseases of the nervous system and sense organs; Z79.899 Other long term (current) drug therapy; Z88.6 Allergy status to analgesic agent; Z91.041 Radiographic dye allergy status; Z98.890 Other specified postprocedural states; Z90.710 Acquired absence of both cervix and uterus; Z79.82 Long term (current) use of aspirin; Z98.49 Cataract extraction status, unspecified eye; Z95.1 Presence of aortocoronary bypass graft
CPT/HCPCS: 81001; 99284; 99285

== ENCOUNTER 2019-04-06 11:07 | Emergency (ER) | payer MEDICARE ==
[2019-04-06] MEDS ORDERED: oxyCODONE 5 MG Tab PO ONE (11:47)
--- NOTE | 2019-04-06 11:51 | EDM.PDOC ---
ED HPI GENERAL MEDICAL PROBLEM - General Chief Complaint: Lower Extremity Injury/Pain Stated Complaint: RIGHT ANKLE, LEFT KNEE PAIN Time Seen by Provider: 04/06/19 11:45 Source of Information: Reports: Patient, Family History Limitations: Reports: No Limitations - History of Present Illness INITIAL COMMENTS - FREE TEXT/NARRATIVE: Rebeca is an 83 year old female, presents to the ED today with her and daughter with c/o right ankle pain/swelling right foot pain and swelling after she fell at home last night. unable to bear weight. Patient fell two days prior and landed and left knee. Patient thinks she had been favoring her right leg and it twisted last night but she is unsure. was trying to use a walker this morning but was unable to. Patient took Ibuprofen for pain with no relief. Any movement/weightbearing makes her symptoms worse. Duration: Day(s): (1) Right Ankle Pain Score (Numeric/FACES): 2 Left Knee Pain Score (Numeric/FACES): 2 - Related Data Allergies Allergy/AdvReac Type Severity Reaction Status Date / Time acetaminophen [From Tylenol] Allergy Vomiting Verified 02/24/17 22:28 Iodinated Contrast Media Allergy Edema Verified 02/24/17 22:28 [Iodinated Contrast- Oral and IV Dye] Home Meds: Home Meds Albuterol Sulfate [Proair Hfa] 2 puff INH QID PRN 09/01/15 [History] Citalopram Hydrobromide [Citalopram HBr] 20 mg PO QAM 09/01/15 [History] Dicyclomine [Bentyl] 1 cap PO BIDAC PRN 09/01/15 [History] Chlorthalidone 25 mg PO DAILY 10/12/16 [History] Budesonide/Formoterol Fumarate [Symbicort 80-4.5 Mcg Inhaler] 2 puff INH BID 08/07 [History] Aspirin [Halfprin] 81 mg PO DAILY 02/20/17 [History] Carvedilol 12.5 mg PO BIDAC 02/20/17 [History] Losartan [Cozaar] 100 mg PO DAILY 02/20/17 [History] LORazepam [Ativan] 0.5 mg PO TID PRN #30 tablet 02/21/17 [Rx] Past Medical History HEENT History: Reports: Cataract Cardiovascular History: Reports: Hypertension Respiratory History: Reports: Asthma Gastrointestinal History: Reports: Other (See Below) Other Gastrointestinal History: abdominal pain after hysterectomy with constipation 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, Neurological History: Reports: Other (See Below) Other Neuro History: had tx from neurologist does not remember what Psychiatric History: Reports: Anxiety, Depression - Past Surgical History Head Surgeries/Procedures: Reports: None HEENT Surgical History: Reports: Cataract Surgery, Tonsillectomy Cardiovascular Surgical History: Reports: Coronary Artery Bypass Other Cardiovascular Surgeries/Procedures: 2015 bypass Respiratory Surgical History: Reports: None GI Surgical History: Reports: Colonoscopy Female Surgical History: Reports: Hysterectomy Neurological Surgical History: Reports: None Dermatological Surgical History: Reports: None Social & Family History - Family History Family Medical History: Noncontributory - Tobacco Use Smoking Status *Q: Former Smoker Used Tobacco, but Quit: Yes Month/Year Tobacco Last Used: 1999 Second Hand Smoke Exposure: No - Caffeine Use Caffeine Use: Reports: Coffee - Recreational Drug Use Recreational Drug Use: No - Living Situation & Occupation Living situation: Reports: with Significant Other Occupation: Employed Review of Systems - Review of Systems Review Of Systems: ROS reveals no pertinent complaints other than HPI. ED EXAM, GENERAL - Physical Exam Exam: See Below Exam Limited By: No Limitations General Appearance: Alert, WD/WN, No Apparent Distress Eye Exam: Bilateral Eye: EOMI Throat/Mouth: Inflammation Neck: Normal Inspection, Supple Respiratory/Chest: No Respiratory Distress Cardiovascular: Bradycardia Peripheral Pulses: 2+: Dorsalis Pedis (L), Dorsalis Pedis (R) Extremities: Other (right foot/ankle are swollen, medial and lateral malleolar regions, ecchymosis present, pedal pulses and cap refill intact. Abrasion and small amount of burising to left knee, no deformities) Neurological: Alert, Oriented Psychiatric: Normal Affect Lymphatic: No Adenopathy Course - Vital Signs Last Recorded V/S: Last Vital Signs Temp 35.5 C 04/06/19 14:48 Pulse 56 L 04/06/19 14:48 Resp 16 04/06/19 14:48 BP 181/78 H 04/06/19 14:48 Pulse Ox 90 L 04/06/19 14:48 Rebeca is an 83 year old female, presents to the ED today with c/o right ankle/ foot pain, fell last night, now cannot bear weight on right leg. Patient also c /o left knee pain since falling two days prior. X-rays of left knee, right ankle and foot. Right ankle with mildly displaced fibula fracture and ligamentous avulsion of malleolus, splint vs. CAM boot per ortho on review of image. Concern for ability to care for herself at home. Daughter is able to help out quite a bit but does have to go to work during the day. Pain is better here with oxycodone. Ortho recommend splint, three sided short fiberglass splint applied with good CMS post application. Patient also with UTI, started on Cefdinir pending culture. We unfortunately are out of beds here and unable to keep patient, I do not feel patient can safely care for herself at home and requires PT/OT to get involved and likely a brief TCU stay. Patient and family agreeable, requesting transfer to [facility] in [place], I discussed patient case with their hospitalist, Dr. Cara newman. She has graciously accepted patient for transfer. 1440-central office operator supervisor from [facility] called, apparently they now cannot accept patient. I spoke with hospitalist at [place], Dr. Toscano, he has graciously accepted patient for transfer. Family again updated on plan of care. Patient remains in stable condition. - Orders/Labs/Meds Orders: Active Orders 24 hr Category Date Time Status CULTURE URINE [RM] Stat Lab 04/06/19 13:46 Received Labs: Laboratory Tests 04/06/19 Range/Units 13:22 Urine Color Yellow (YELLOW) Urine Appearance Cloudy A (CLEAR) Urine pH 7.5 (5.0-8.0) Ur Specific [place] 1.015 (1.008-1.030) Urine Protein Negative (NEGATIVE) mg/dL Urine Glucose (UA) Negative (NEGATIVE) mg/dL Urine Ketones Negative (NEGATIVE) mg/dL Urine Occult Blood Trace-intact H (NEGATIVE) Urine Nitrite Positive H (NEGATIVE) Urine Bilirubin Negative (NEGATIVE) Urine Urobilinogen 0.2 (0.2-1.0) EU/dL Ur Leukocyte Esterase Moderate H (NEGATIVE) Urine RBC 0-5 (0-5) Urine WBC 30-40 H (0-5) Ur Epithelial Cells Not seen Amorphous Sediment Not seen Urine Bacteria Many Urine Mucus Not seen Meds: Medications Discontinued Medications Generic Name Dose Route Start Last Admin Trade Name Freq PRN Reason Stop Dose Admin Cefdinir 300 mg 04/06/19 13:45 04/06/19 13:56 Omnicef PO 04/06/19 13:46 300 mg ONETIME ONE Administration Oxycodone HCl 5 mg 04/06/19 11:47 04/06/19 11:58 Oxycodone PO 04/06/19 11:48 5 mg ONETIME ONE Administration Departure - Departure Time of Disposition: 16:15 Disposition: DC/Tfer to Acute Hospital 02 Condition: Fair Clinical Impression: Urinary tract infection in female, Avulsion of ligament with bony fragment of medial malleolus Fibula fracture Qualifiers: Encounter type: initial encounter Fibula location: distal Fracture type: closed Fracture morphology: unspecified fracture morphology Laterality: right Qualified Code(s): S82.831A - Other fracture of upper and lower end of right fibula, initial encounter for closed fracture - Discharge Information Referrals: Negro Anne MD [Primary Care Provider] - Forms: ED Department Discharge - My Orders Last 24 Hours: My Active Orders 04/06/19 13:46 CULTURE URINE [RM] Stat - Assessment/Plan Last 24 Hours: My Active Orders 04/06/19 13:46 CULTURE URINE [RM] Stat
[2019-04-06] MEDS ORDERED: Cefdinir 300 MG Cap PO ONE (13:45)
--- NOTE | 2019-04-06 13:54 | CR ---
FOOT RIGHT 3 views CLINICAL HISTORY:Pain, fall FINDINGS:No fracture line is identified. There is some soft tissue fullness in the forefoot. The there is some bony rarefaction in the distal fourth and fifth metatarsals. There is some osteoarthritic change in the first tarsometatarsal joint. There is also degenerative changes in the interphalangeal joints. 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
--- NOTE | 2019-04-06 13:56 | CR ---
Ankle Min 3V Rt CLINICAL HISTORY: Vein, fall FINDINGS: There is an oblique slightly displaced fracture of the distal fibular diaphysis. There is widening of the medial ankle mortise. There is generalized soft tissue swelling. There is some ossific density off the tip of the medial malleolus likely related to ligamentous avulsion. Impression: Distal fibular fracture Lateral subluxation of the talus with widening of the medial ankle mortise Ligamentous avulsion off the medial malleolus
--- NOTE | 2019-04-06 13:59 | CR ---
Knee 3V Lt CLINICAL HISTORY: Pain, fall FINDINGS: No acute fracture or dislocation is noted. There are no osseous lesions. There is joint space narrowing in the medial compartment. There is patellar spurring. Impression: Osteoarthritic change No fracture or dislocation
[2019-04-06 14:50] VITALS: BP 181/78; PULSE 56
== END 2019-04-06 16:22 ==
LOC: JP.ED 11:07
DX: S82.51XA Displaced fracture of medial malleolus of right tibia, initial encounter for closed fracture (principal); S82.831A Other fracture of upper and lower end of right fibula, initial encounter for closed fracture; N39.0 Urinary tract infection, site not specified; I10 Essential (primary) hypertension; J45.909 Unspecified asthma, uncomplicated; Z87.891 Personal history of nicotine dependence; Z98.890 Other specified postprocedural states; Z90.710 Acquired absence of both cervix and uterus; Z79.51 Long term (current) use of inhaled steroids; Z79.82 Long term (current) use of aspirin; Z91.041 Radiographic dye allergy status; Z88.6 Allergy status to analgesic agent; W19.XXXA Unspecified fall, initial encounter; Y92.009 Unspecified place in unspecified non-institutional (private) residence as the place of occurrence of the external cause
CPT/HCPCS: 29515; 73562; 73610; 73630; 81001; 87086; 87088; 87186; 99284; A9270

== ENCOUNTER 2019-12-12 12:42 | Emergency (ER) | payer MEDICARE ==
[2019-12-12] MEDS ORDERED: Oxymetazoline 0.05% Nasal Spray 30 ML Bottle NAS ONE (13:09)
--- NOTE | 2019-12-12 13:10 | EDM.PDOC ---
ED HPI GENERAL MEDICAL PROBLEM - General Chief Complaint: ENT Problem Stated Complaint: CONT. NOSE BLEED Time Seen by Provider: 12/12/19 13:08 Source of Information: Reports: Patient - History of Present Illness INITIAL COMMENTS - FREE TEXT/NARRATIVE: Rebeca presents today with complaints of bloody nose off and on for 3 to 4 days. She states her provider has been working with her on her blood pressure management because it has been in the 180s. She reports bloody nose to both nare at times, but is most often to the left. Bleeding to the left nare today. she has tried pressure and use of saline spray without any improvement. - Related Data Allergies Allergy/AdvReac Type Severity Reaction Status Date / Time acetaminophen [From Tylenol] Allergy Vomiting Verified 12/12/19 13:14 Iodinated Contrast Media Allergy Edema Verified 12/12/19 13:14 [Iodinated Contrast- Oral and IV Dye] Home Meds: Home Meds Albuterol Sulfate [Proair Hfa] 2 puff INH QID PRN 09/01/15 [History] Citalopram Hydrobromide [Citalopram HBr] 20 mg PO QAM 09/01/15 [History] Dicyclomine [Bentyl] 1 cap PO BIDAC PRN 09/01/15 [History] Chlorthalidone 25 mg PO DAILY 10/12/16 [History] Budesonide/Formoterol Fumarate [Symbicort 80-4.5 MCG] 2 puff INH BID 02/19/17 [ History] Aspirin [Halfprin] 81 mg PO DAILY 02/20/17 [History] Losartan [Cozaar] 100 mg PO DAILY 02/20/17 [History] carvediloL [Carvedilol] 12.5 mg PO BIDAC 02/20/17 [History] LORazepam [Ativan] 0.5 mg PO TID PRN #30 tablet 02/21/17 [Rx] Past Medical History HEENT History: Reports: Cataract Cardiovascular History: Reports: Hypertension Respiratory History: Reports: Asthma Gastrointestinal History: Reports: Other (See Below) Other Gastrointestinal History: abdominal pain after hysterectomy with constipation 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: 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, Neurological History: Reports: Other (See Below) Other Neuro History: had tx from neurologist does not remember what Psychiatric History: Reports: Anxiety, Depression - Past Surgical History Head Surgeries/Procedures: Reports: None HEENT Surgical History: Reports: Cataract Surgery, Tonsillectomy Cardiovascular Surgical History: Reports: Coronary Artery Bypass Other Cardiovascular Surgeries/Procedures: 2015 bypass Respiratory Surgical History: Reports: None GI Surgical History: Reports: Colonoscopy Female Surgical History: Reports: Hysterectomy Neurological Surgical History: Reports: None Dermatological Surgical History: Reports: None Social & Family History - Family History Family Medical History: Noncontributory - Caffeine Use Caffeine Use: Reports: Coffee - Living Situation & Occupation Living situation: Reports: with Significant Other Occupation: Employed ED ROS ENT - Review of Systems Review Of Systems: See Below Constitutional: Reports: No Symptoms HEENT: Reports: Other (nose bleed) Respiratory: Reports: No Symptoms Cardiovascular: Reports: Blood Pressure Problem Endocrine: Reports: No Symptoms Musculoskeletal: Reports: No Symptoms Skin: Reports: No Symptoms Neurological: Reports: No Symptoms Psychiatric: Reports: No Symptoms Hematologic/Lymphatic: Reports: No Symptoms Immunologic: Reports: No Symptoms ED EXAM, ENT - Physical Exam Exam: See Below Exam Limited By: No Limitations General Appearance: Alert, WD/WN, No Apparent Distress Eye Exam: Bilateral Eye: Normal Inspection, PERRL Ears: Normal External Exam, Normal Canal, Hearing Grossly Normal, Normal TMs Nose: Nasal Tenderness, Dried Blood, Other (blood clot noted ). No: Septal Deformity Mouth/Throat: Normal Inspection, Normal Gums, Normal Lips, Normal Oropharynx, Normal Teeth Head: Atraumatic, Normocephalic Neck: Normal Inspection, Supple, Non-Tender, Full Range of Motion. No: Lymphadenopathy (R), Lymphadenopathy (L) Respiratory/Chest: No Respiratory Distress, Lungs Clear, Normal Breath Sounds, No Accessory Muscle Use, Chest Non-Tender Cardiovascular: Normal Peripheral Pulses, Regular Rate, Rhythm, No Edema, No Gallop, No Murmur, No Rub Neurological: Alert, Normal Cognition, Normal Gait, No Motor/Sensory Deficits Psychiatric: Normal Affect, Normal Mood Skin: Warm, Dry, Intact, Normal Color, No Rash ED ENT PROCEDURES - Epistaxis Procedure Indication: Controlled Recent anticoagulants/antiplatlets: No Uncontrolled HTN: Yes Recent septal/nasal surgery: No Site of bleeding: Left Nare Clearing of clots: Patient Blew Nose, Suction Topical Meds: Other (afrin) Ice pack to area: No Complications: No Complication Description: Bleeding controlled after clot removed, nare packed with afrin cotton balls and removed x 2. No bleeding. patient tolerated well. Course - Vital Signs Last Recorded V/S: Last Vital Signs Temp 36.9 C 12/12/19 13:14 Pulse 63 12/12/19 13:14 Resp 20 12/12/19 13:14 BP 183/88 H 12/12/19 13:14 Pulse Ox 94 L 12/12/19 13:14 - Orders/Labs/Meds Meds: Medications Discontinued Medications Generic Name Dose Route Start Last Admin Trade Name Shira PRN Reason Stop Dose Admin Oxymetazoline HCl 3 ml 12/12/19 13:09 12/12/19 13:23 Nasal Decongestant [place] KERWIN 12/12/19 13:10 3 ml ONETIME ONE Administration - Re-Assessments/Exams Free Text/Narrative Re-Assessment/Exam: 12/12/19 13:15 Left nare packed with afrin cotton ball. 1330 cotton ball removed, large clot removed. Left nare packed with afrin cotton ball. Patient tolerating well. Second afrin pack removed, no bleeding, blood pressure decreased. Education provided to prevent nose bleeds. Patient verbalized understanding. Repeat blood pressure improved to 168/78 Departure - Departure Time of Disposition: 13:59 Disposition: Home, Self-Care 01 Condition: Good Clinical Impression: Epistaxis - Discharge Information *PRESCRIPTION DRUG MONITORING PROGRAM REVIEWED*: Not Applicable *COPY OF PRESCRIPTION DRUG MONITORING REPORT IN PATIENT JESSICA: Not Applicable Instructions: Nosebleed, [id number] Referrals: PCP,None [Primary Care Provider] - Forms: ED Department Discharge Additional Instructions: Avoid touching, picking or blowing the nose. Do not use any nasal sprays or treatments to the nose. Return for any worsening, issues or concerns. Follow up with primary in 7 to 10 days for hypertension management and nose bleeds. Blood pressure today was 168/78 Sepsis Event Note - Focused Exam Vital Signs: Vital Signs Temp Pulse Resp BP Pulse Ox 12/12/19 13:14 36.9 C 63 20 183/88 H 94 L Date Exam was Performed: 12/12/19 Time Exam was Performed: 14:14 - Assessment/Plan Assessment:: Epistaxis Plan: Avoid touching, picking or blowing the nose. Do not use any nasal sprays or treatments to the nose. Return for any worsening, issues or concerns. Follow up with primary in 7 to 10 days for hypertension management and nose bleeds.
[2019-12-12 13:18] VITALS: BP 183/88; PULSE 63
== END 2019-12-12 14:14 | disposition home or self-care (01) ==
LOC: JP.ED 12:42
DX: R04.0 Epistaxis (principal); I10 Essential (primary) hypertension; Z88.6 Allergy status to analgesic agent; Z91.041 Radiographic dye allergy status; Z79.899 Other long term (current) drug therapy; Z79.82 Long term (current) use of aspirin; Z95.1 Presence of aortocoronary bypass graft
CPT/HCPCS: 30901; 99283; A9270

== ENCOUNTER 2019-12-28 12:33 | Emergency (ER) | payer MEDICARE ==
[2019-12-28 13:27] VITALS: BP 165/72; PULSE 96
--- NOTE | 2019-12-28 14:01 | EDM.PDOC ---
ED HPI GENERAL MEDICAL PROBLEM - General Chief Complaint: Cardiovascular Problem Stated Complaint: ELEVATED BLOOD PRESSURE Time Seen by Provider: 12/28/19 13:35 Source of Information: Reports: Patient History Limitations: Reports: No Limitations - History of Present Illness INITIAL COMMENTS - FREE TEXT/NARRATIVE: 84-year-old female had some elevated blood pressure today and anxiety, now feels much better that she is in the emergency room. Her initial blood pressure was over 180 systolic, after 20 minutes it normalized to 165/72. Other than feeling nervous and anxious, she has no symptoms of chest pain, headache, shortness of breath or palpitations. Onset: Unknown/Unsure Associated Symptoms: Reports: No Other Symptoms - Related Data Allergies Allergy/AdvReac Type Severity Reaction Status Date / Time acetaminophen [From Tylenol] Allergy Vomiting Verified 12/28/19 13:13 Iodinated Contrast Media Allergy Edema Verified 12/28/19 13:13 [Iodinated Contrast- Oral and IV Dye] Home Meds: Home Meds Albuterol Sulfate [Proair Hfa] 2 puff INH QID PRN 09/01/15 [History] Citalopram Hydrobromide [Citalopram HBr] 20 mg PO QAM 09/01/15 [History] Dicyclomine [Bentyl] 1 cap PO BIDAC PRN 09/01/15 [History] Chlorthalidone 25 mg PO DAILY 10/12/16 [History] Budesonide/Formoterol Fumarate [Symbicort 80-4.5 MCG] 2 puff INH BID 02/19/17 [ History] Aspirin [Halfprin] 81 mg PO DAILY 02/20/17 [History] Losartan [Cozaar] 100 mg PO DAILY 02/20/17 [History] carvediloL [Carvedilol] 12.5 mg PO BIDAC 02/20/17 [History] LORazepam [Ativan] 0.5 mg PO TID PRN #30 tablet 02/21/17 [Rx] Past Medical History HEENT History: Reports: Cataract Cardiovascular History: Reports: Hypertension Respiratory History: Reports: Asthma Gastrointestinal History: Reports: Other (See Below) Other Gastrointestinal History: abdominal pain after hysterectomy with constipation, colitis, bleeding from bowel Genitourinary History: Reports: UTI, Recurrent 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: 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, Neurological History: Reports: Other (See Below) Other Neuro History: had tx from neurologist because she went through a bad period having trouble with expressive aphasia Psychiatric History: Reports: Anxiety, Depression, Panic Attack - Past Surgical History Head Surgeries/Procedures: Reports: None HEENT Surgical History: Reports: Cataract Surgery, Tonsillectomy Cardiovascular Surgical History: Reports: Coronary Artery Bypass Other Cardiovascular Surgeries/Procedures: 2015 bypass Respiratory Surgical History: Reports: None GI Surgical History: Reports: Colonoscopy Female Surgical History: Reports: Hysterectomy Neurological Surgical History: Reports: None Dermatological Surgical History: Reports: None Social & Family History - Family History Family Medical History: Noncontributory - Tobacco Use Smoking Status *Q: Never Smoker - Caffeine Use Caffeine Use: Reports: Coffee - Recreational Drug Use Recreational Drug Use: No - Living Situation & Occupation Living situation: Reports: with Significant Other Occupation: Employed ED ROS GENERAL - Review of Systems Review Of Systems: See Below Constitutional: Denies: Fever, Chills Respiratory: Denies: Shortness of Breath Cardiovascular: Denies: Chest Pain GI/Abdominal: Denies: Abdominal Pain, Nausea, Vomiting Psychiatric: Reports: Anxiety ED EXAM, GENERAL - Physical Exam Exam: See Below Exam Limited By: No Limitations General Appearance: Alert, No Apparent Distress Eye Exam: Bilateral Eye: Normal Inspection Head: Atraumatic Respiratory/Chest: Lungs Clear Cardiovascular: Regular Rate, Rhythm. No: Extra Beats Extremities: No: Pedal Edema Neurological: Alert (I guess), Oriented Course - Vital Signs Last Recorded V/S: Last Vital Signs Temp 96.4 F L 12/28/19 13:25 Pulse 96 12/28/19 13:25 Resp 16 12/28/19 13:25 BP 165/72 H 12/28/19 13:25 Pulse Ox - Radiology Interpretation Free Text/Narrative:: Reassured the patient that her blood pressure is not high enough for acute treatment, especially without symptoms. She will follow-up with her primary provider in the next 1 to 2 weeks if she continues to have problems. Encouraged her to avoid extra salt intake. Departure - Departure Time of Disposition: 14:38 Disposition: Home, Self-Care 01 Clinical Impression: Hypertension Qualifiers: Hypertension type: essential hypertension Qualified Code(s): I10 - Essential ( primary) hypertension Instructions: Hypertension, Adult, [id number] Referrals: Stefania Cabrera PA-C [Primary Care Provider] - Forms: ED Department Discharge Care Plan Goals: Continue your current medications and monitoring. Return if you develop chest pain, shortness of breath or headache with your high blood pressure. Otherwise recheck with your primary provider in the next 1 to 2 weeks if you feel your blood pressure is not being properly treated. Sepsis Event Note - Evaluation Sepsis Screening Result: No Definite Risk - Focused Exam Vital Signs: Vital Signs Temp Pulse Resp BP 12/28/19 13:25 96.4 F L 96 16 165/72 H Date Exam was Performed: 12/28/19 Time Exam was Performed: 18:53
== END 2019-12-28 14:25 | disposition home or self-care (01) ==
LOC: JP.ED 12:33
DX: I10 Essential (primary) hypertension (principal); J45.909 Unspecified asthma, uncomplicated; F41.9 Anxiety disorder, unspecified; F32.9 Major depressive disorder, single episode, unspecified; Z88.6 Allergy status to analgesic agent; Z91.041 Radiographic dye allergy status; Z79.899 Other long term (current) drug therapy
CPT/HCPCS: 99283

== ENCOUNTER 2020-02-27 19:19 | Emergency (ER) | payer MEDICARE ==
[2020-02-27] MEDS ORDERED: Losartan 50 MG Tab PO ONE (21:47)
[2020-02-27] MEDS ORDERED: Ibuprofen 600 MG Tab PO ONE (22:31)
--- NOTE | 2020-02-27 22:40 | EDM.PDOC ---
ED HPI GENERAL MEDICAL PROBLEM - General Chief Complaint: Cardiovascular Problem Stated Complaint: BAD HEADACHE Time Seen by Provider: 02/27/20 21:08 Source of Information: Reports: Patient, Family, RN, RN Notes Reviewed - History of Present Illness INITIAL COMMENTS - FREE TEXT/NARRATIVE: Pt states b/p started elevating today. This has happened in past for no reason according to her daughter. Pt is sure she has taken all of her doses of medication for her blood pressure. She also states she has a right sided headache, right neck pain with stiffness. She thinks she may have slept funny and at the beginning of the week she strained her neck during a boat ride. She rate the pain at a 8-9. 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: NSAIDS (400 mg ibuprofen twice that helped some) Right Temporal Pain Score (Numeric/FACES): 8 - Related Data Allergies Allergy/AdvReac Type Severity Reaction Status Date / Time acetaminophen [From Tylenol] Allergy Vomiting Verified 12/28/19 13:13 Iodinated Contrast Media Allergy Edema Verified 12/28/19 13:13 [Iodinated Contrast- Oral and IV Dye] Home Meds: Home Meds Albuterol Sulfate [Proair Hfa] 2 puff INH QID PRN 09/01/15 [History] Citalopram Hydrobromide [Citalopram HBr] 20 mg PO QAM 09/01/15 [History] Dicyclomine [Bentyl] 1 cap PO BIDAC PRN 09/01/15 [History] Budesonide/Formoterol Fumarate [Symbicort 80-4.5 MCG] 2 puff INH BID 02/19/17 [History] Aspirin [Halfprin] 81 mg PO DAILY 02/20/17 [History] Losartan [Cozaar] 100 mg PO DAILY 02/20/17 [History] carvediloL [Carvedilol] 12.5 mg PO BIDAC 02/20/17 [History] LORazepam [Ativan] 0.5 mg PO TID PRN #30 tablet 02/21/17 [Rx] Furosemide [Lasix] 20 mg PO DAILY 02/27/20 [History] Past Medical History HEENT History: Reports: Cataract Cardiovascular History: Reports: Hypertension Respiratory History: Reports: Asthma Gastrointestinal History: Reports: Other (See Below) Other Gastrointestinal History: abdominal pain after hysterectomy with constipation, colitis, bleeding from bowel Genitourinary History: Reports: UTI, Recurrent 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, Musculoskeletal History: Reports: Fracture Other Musculoskeletal History: tib/fib fx with repair with screws Neurological History: Reports: Other (See Below) Other Neuro History: had tx from neurologist because she went through a bad period having trouble with expressive aphasia Psychiatric History: Reports: Anxiety, Depression, Panic Attack - Past Surgical History Head Surgeries/Procedures: Reports: None HEENT Surgical History: Reports: Cataract Surgery, Tonsillectomy Cardiovascular Surgical History: Reports: Coronary Artery Bypass Other Cardiovascular Surgeries/Procedures: 2015 bypass Respiratory Surgical History: Reports: None GI Surgical History: Reports: Colonoscopy Female Surgical History: Reports: Hysterectomy Neurological Surgical History: Reports: None Dermatological Surgical History: Reports: None Social & Family History - Family History Family Medical History: Noncontributory - Tobacco Use Smoking Status *Q: Never Smoker Second Hand Smoke Exposure: No - Caffeine Use Caffeine Use: Reports: Coffee - Alcohol Use Days Per Week of Alcohol Use: 7 Number of Drinks Per Day: 2 Total Drinks Per Week: 14 - Recreational Drug Use Recreational Drug Use: No - Living Situation & Occupation Living situation: Reports: with Significant Other Occupation: Employed ED ROS GENERAL - Review of Systems Review Of Systems: See Below Constitutional: Reports: No Symptoms HEENT: Reports: No Symptoms Respiratory: Denies: Shortness of Breath, Wheezing, Pleuritic Chest Pain, Cough, Sputum Cardiovascular: Reports: Blood Pressure Problem. Denies: Chest Pain, Dyspnea on Exertion, Edema, Lightheadedness, Orthopnea, Palpitations Endocrine: Denies: Fatigue GI/Abdominal: Denies: Abdominal Pain, Anorexia, Constipation, Diarrhea : Reports: No Symptoms Musculoskeletal: Reports: Neck Pain (right neck), Muscle Stiffness. Denies: Arm Pain Skin: Reports: No Symptoms Neurological: Reports: Headache. Denies: Dizziness, Numbness, Paresthesia, Seizure, Syncope, Tingling Psychiatric: Reports: Confusion. Denies: Depression, Hallucinations, Mood Lability ED EXAM, GENERAL - Physical Exam Exam: See Below Exam Limited By: No Limitations General Appearance: Alert, WD/WN, No Apparent Distress Ears: Normal External Exam, Normal Canal, Normal TMs Nose: Normal Inspection, Normal Mucosa, No Blood Throat/Mouth: Normal Inspection, Normal Oropharynx Head: No: Facial Swelling, Facial Tenderness, Sinus Tenderness Neck: Normal Inspection, Full Range of Motion. No: Non-Tender, Limited Range of Motion Respiratory/Chest: No Respiratory Distress, Lungs Clear, Normal Breath Sounds, No Accessory Muscle Use, Chest Non-Tender Cardiovascular: Normal Peripheral Pulses, Regular Rate, Rhythm, No Edema GI/Abdominal: Normal Bowel Sounds, Soft, Non-Tender, No Organomegaly Back Exam: Normal Inspection, Full Range of Motion Extremities: Normal Inspection, Normal Range of Motion, Non-Tender, No Pedal Edema, Normal Capillary Refill Neurological: Alert, Oriented Psychiatric: Normal Affect, Normal Mood Skin Exam: Warm, Dry, Intact, Normal Color Lymphatic: No Adenopathy Course - Vital Signs Last Recorded V/S: Last Vital Signs Temp 35.8 C L 02/27/20 22:26 Pulse 61 02/27/20 22:54 Resp 16 02/27/20 22:26 BP 189/85 H 02/27/20 22:54 Pulse Ox 94 L 02/27/20 22:26 - Orders/Labs/Meds Labs: Laboratory Tests 02/27/20 02/27/20 02/27/20 Range/Units 21:39 21:56 21:56 WBC 10.3 (4.5-11.0) K/uL RBC 5.33 (3.30-5.50) M/uL Hgb 15.3 H D (12.0-15.0) g/dL Hct 46.0 (36.0-48.0) % MCV 86 (80-98) fL MCH 29 (27-31) pg MCHC 33 (32-36) % Plt Count 193 (150-400) K/uL Neut % (Auto) 67 H (36-66) % Lymph % (Auto) 20 L (24-44) % Branch % (Auto) 10 H (2-6) % Eos % (Auto) 2 (2-4) % Baso % (Auto) 0 (0-1) % Sodium 134 L (140-148) mmol/L Potassium 3.7 (3.6-5.2) mmol/L Chloride 97 L (100-108) mmol/L Carbon Dioxide 33 H (21-32) mmol/L Anion Gap 7.7 (5.0-14.0) mmol/L BUN 13 (7-18) mg/dL Creatinine 1.1 H (0.6-1.0) mg/dL Est Cr Clr Drug Dosing 40.49 mL/min Estimated GFR (MDRD) 48 L (>60) Glucose 123 H (74-106) mg/dL Calcium 8.6 (8.5-10.1) mg/dL Total Bilirubin 0.9 (0.2-1.0) mg/dL AST 18 (15-37) U/L ALT 18 (12-78) U/L Alkaline Phosphatase 90 (46-116) U/L Total Protein 7.0 (6.4-8.2) g/dL Albumin 3.9 (3.4-5.0) g/dL Globulin 3.1 (2.3-3.5) g/dL Albumin/Globulin Ratio 1.3 (1.2-2.2) Urine Color Yellow (YELLOW) Urine Appearance Clear (CLEAR) Urine pH 7.5 (5.0-8.0) Ur Specific [place] 1.020 (1.008-1.030) Urine Protein Negative (NEGATIVE) mg/dL Urine Glucose (UA) Negative (NEGATIVE) mg/dL Urine Ketones Negative (NEGATIVE) mg/dL Urine Occult Blood Trace-intact H (NEGATIVE) Urine Nitrite Negative (NEGATIVE) Urine Bilirubin Negative (NEGATIVE) Urine Urobilinogen 0.2 (0.2-1.0) EU/dL Ur Leukocyte Esterase Negative (NEGATIVE) Meds: Medications Discontinued Medications Generic Name Dose Route Start Last Admin Trade Name Freq PRN Reason Stop Dose Admin Ibuprofen 600 mg 02/27/20 22:31 02/27/20 22:37 Motrin PO 02/27/20 22:32 600 mg ONETIME ONE Administration Losartan Potassium 50 mg 02/27/20 21:47 02/27/20 21:56 Cozaar PO 02/27/20 21:48 50 mg ONETIME ONE Administration Losartan for blood pressure - Pt currently taking 50mg per day but Home med record states she is taking 100mg per day. daughter confirms she has only been taking 50mg a day per the bottle directions. Will increase to 100mg per day and have her followup Saturday or Saturday with her PCP. She can return it ER if problems with her blood pressure return prior to seeing her PCP - B/P recheck 192/89 and 189/85 1 hour post additional dose. Ibuprofen for head ache and neck strain which has improved her pain according to the pt. She states it has improved and would like to go home. Daughter feels comfortable with the decision to increase the blood pressure medication until followup with PCP first part of week. Daughter is educated to watch for sxs of low blood pressure including dizziness with change of position, feeling faint, etc. Daughter will monitor patients bp at home and give extra 50 mg with her evening meds versus all at one time. Pt educated not to take large does of ibuprofen due to lower GFR. She is unable to take tylenol due to allergy Departure - Departure Time of Disposition: 11:20 Disposition: Home, Self-Care 01 Condition: Fair Clinical Impression: Hypertensive heart disease Instructions: Hypertension, Adult, [id number] Referrals: Stefania Cabrera PA-C [Primary Care Provider] - Forms: ED Department Discharge Additional Instructions: Take additional Losartan 50mg with pm meds daily until follow up with primary care provider Saturday or Saturday. Sepsis Event Note (ED) - Evaluation Sepsis Screening Result: No Definite Risk - Focused Exam Vital Signs: Vital Signs Temp Pulse Resp BP BP Pulse Ox 02/27/20 22:54 61 189/85 H 02/27/20 22:26 35.8 C L 70 16 192/89 H 94 L 02/27/20 21:56 204/86 H 02/27/20 21:24 70 16 249/121 H 94 L 02/27/20 20:43 71 234/122 H 02/27/20 20:00 66 197/104 H 02/27/20 19:31 35.8 C L 71 16 221/105 H 94 L
[2020-02-27 22:54] VITALS: BP 189/85; PULSE 61
== END 2020-02-27 23:22 | disposition home or self-care (01) ==
LOC: JP.ED 19:19
DX: I11.9 Hypertensive heart disease without heart failure (principal); J45.909 Unspecified asthma, uncomplicated; F41.0 Panic disorder [episodic paroxysmal anxiety]; F32.9 Major depressive disorder, single episode, unspecified; Z88.8 Allergy status to other drugs, medicaments and biological substances; Z91.041 Radiographic dye allergy status
CPT/HCPCS: 36415; 80053; 81003; 85025; 99284; A9270

== ENCOUNTER 2022-09-04 13:23 | Emergency (ER) | payer MEDICARE ==
[2022-09-04] MEDS ORDERED: cefTRIAXone 1 GM Vial IM ONE (15:01)
[2022-09-04 15:26] VITALS: BP 182/77; PULSE 57
[2022-09-04] MEDS ORDERED: cefTRIAXone 1 GM in Sodium Chloride 0.9% 50 ML IV ONE (15:27)
== END 2022-09-04 16:15 | disposition home or self-care (01) ==
LOC: JP.ED 13:23
DX: N30.00 Acute cystitis without hematuria (principal); I10 Essential (primary) hypertension; I25.10 Atherosclerotic heart disease of native coronary artery without angina pectoris; J45.909 Unspecified asthma, uncomplicated; Z87.891 Personal history of nicotine dependence; Z88.6 Allergy status to analgesic agent; Z91.041 Radiographic dye allergy status; Z91.018 Allergy to other foods; Z79.82 Long term (current) use of aspirin; Z79.899 Other long term (current) drug therapy
CPT/HCPCS: 36415; 80048; 81001; 83605; 84484; 85025; 87086; 87088; 87186; 96365; 99284; J0696